=== PATIENT | female | born 1940 | race Caucasian/White ===

== ENCOUNTER 2017-07-26 16:02 | Emergency (ER) | payer MEDICAID, MEDICARE ==
[~2017-07-26] VITALS: Ht 147.3 cm; Wt 78.1 kg
[~2017-07-26 16:02] MED LIST: DICL50TA2 PO; METF850T2 PO; METO-99 PO; NIFE20CA PO; insulin
[2017-07-26] MEDS ORDERED: ALBUTEROL SULFATE 2.5 MG/3 ML ONE (16:46)
[2017-07-26 16:59] LABS: HEMATOCRIT 39.3 % (34.6-47.8); HEMOGLOBIN 13.1 g/dL (11.7-16.4); WHITE BLOOD COUNT 6.4 x10^3/uL (3.4-10)
[2017-07-26 17:00] LABS: BLOOD UREA NITROGEN 35 mg/dL (7-18)
[2017-07-26] MEDS ORDERED: ALBUTEROL SULFATE 2.5 MG/3 ML NPPB ONE (17:00)
[2017-07-26 17:05] LABS: IS PT STATUS REG ER OR PRE ER? YES
[2017-07-26 18:42] VITALS: BP 130/59
== END 2017-07-26 18:45 | disposition home or self-care (01) ==
LOC: ED 18:39
DX: Z76.0 Encounter for issue of repeat prescription (principal); J06.9 Acute upper respiratory infection, unspecified; I10 Essential (primary) hypertension; E11.9 Type 2 diabetes mellitus without complications
CPT/HCPCS: 36415; 71010; 80048; 82040; 84484; 85025; 93005; 94640; 99285; J7613

== ENCOUNTER 2017-09-05 18:57 | Emergency (ER) | payer MEDICARE ==
[~2017-09-05] VITALS: Ht 154.9 cm; Wt 80.0 kg
[2017-09-05 19:02] VITALS: BP 136/68
== END 2017-09-05 21:05 | disposition home or self-care (01) ==
LOC: ED 19:57
DX: Z76.0 Encounter for issue of repeat prescription (principal); I10 Essential (primary) hypertension; E11.9 Type 2 diabetes mellitus without complications; M19.90 Unspecified osteoarthritis, unspecified site
CPT/HCPCS: 99283

== ENCOUNTER 2019-08-20 09:38 | Inpatient (IN) | payer MEDICARE ==
[~2019-08-20] VITALS: Ht 152.4 cm; Wt 91.8 kg
[~2019-08-20 09:38] MED LIST changes: +CILO100T PO; +CLIN300C8 PO; +CLOP75TA PO; +DOXY100T PO; +MELO7.5T31 PO; +METF850T10 PO; -METF850T2 PO; +METR250T18 PO; +NPH INSULIN SQ; +OMEP-110 PO; +SALM50DI INH; +combivent inhaler
[2019-08-20 10:40] VITALS: BP 113/67
[2019-08-20] MEDS ORDERED: DEXTROSE 50%, 50ML SYRINGE IVPush ONE (11:00)
[2019-08-20] MEDS ORDERED: LIDOCAINE-MPF 1%, 2ML INFIL ONE (11:00)
[2019-08-20] MEDS ORDERED: LACTATED RINGERS 1,000 ML IV SCH (11:00)
[2019-08-20] MEDS ORDERED: FENTANYL PF 250 MCG/5ML ONE (11:46)
[2019-08-20] MEDS ORDERED: [UNRECOGNIZED DRUG - OTHER] PO ×2 (12:09→16:11)
[2019-08-20] MEDS ORDERED: CEFAZOLIN 1,000 MG ONE (12:13)
[2019-08-20] MEDS ORDERED: ONDANSETRON 2MG/ML, 2ML ONE (12:13)
[2019-08-20] MEDS ORDERED: LIDOCAINE-MPF 2% ,5ML ONE (12:13)
[2019-08-20] MEDS ORDERED: WATER-INJECTION,STERILE 10 ML IV ONE (12:13)
[2019-08-20] MEDS ORDERED: PHENYLEPHRINE 10 MG/ML ONE (12:13)
[2019-08-20] MEDS ORDERED: PROPOFOL 10 MG/ML, 20ML ONE (12:13)
[2019-08-20] MEDS ORDERED: ACETAMINOPHEN 325 MG TABLET PO PRN ×2 (12:30→14:00)
[2019-08-20] MEDS ORDERED: HALOPERIDOL 5 MG/ML IV PRN (12:30)
[2019-08-20] MEDS ORDERED: FENTANYL PF 100 MCG/2ML IV PRN (12:30)
[2019-08-20] MEDS ORDERED: OXYcodone 5 MG/5 ML ORAL.SOL UDC PO PRN (12:30)
[2019-08-20] MEDS ORDERED: MEPERIDINE/PF 25MG/ML,1ML IVPush PRN (12:30)
[2019-08-20] MEDS ORDERED: hydrALAzine 20 MG/ML, 1ML IV PRN (12:30)
[2019-08-20] MEDS ORDERED: PROMETHAZINE 25 MG/ML, 1ML IV PRN (12:30)
[2019-08-20] MEDS ORDERED: HYDROmorphone 2 MG/ML, 1ML IVPush PRN (12:30)
[2019-08-20] MEDS: SODIUM CHLORIDE 0.9% 1,000 ML IV SCH ×2 (13:59→23:59)
[2019-08-20] MEDS ORDERED: DEXTROSE 50%, 50ML SYRINGE IVPush PRN (14:00)
[2019-08-20] MEDS ORDERED: POLYETHYLENE GLYCOL 17 GM PACKET PO PRN (14:00)
[2019-08-20] MEDS ORDERED: GLUCAGON 1 MG IM PRN (14:00)
[2019-08-20] MEDS ORDERED: DEXTROSE 4 GM TAB.CHEW PO PRN (14:00)
[2019-08-20] MEDS ORDERED: GABAPENTIN 300 MG CAPSULE PO PRN (14:00)
[2019-08-20] MEDS ORDERED: ONDANSETRON ODT 4 MG PO PRN (14:00)
[2019-08-20 14:29] LABS: BASOPHILS # (AUTO) 0.03 x10^3/uL (0-0.1); BASOPHILS % (AUTO) 0 % (0-1); EOSINOPHILS # (AUTO) 0.23 x10^3/uL (0-0.4); EOSINOPHILS % (AUTO) 3 % (1-7); LYMPHOCYTES # (AUTO) 1.55 x10^3/uL (1-3.4); LYMPHOCYTES % (AUTO) 20 % (22-44); MD NO; MEAN CORPUSCULAR HEMOGLOBIN 27.4 pg (27.0-34.8); MEAN CORPUSCULAR HGB CONC 32.3 g/dL (32.4-35.8); MEAN CORPUSCULAR VOLUME 84.7 fL (80-100); MEAN PLATELET VOLUME 7.1 fL (7.4-10.4); MONOCYTES # (AUTO) 0.35 x10^3/uL (0.2-0.8); MONOCYTES % (AUTO) 5 % (2-9); NEUTROPHILS # (AUTO) 5.44 x10^3/uL (1.8-6.8); NEUTROPHILS % (AUTO) 72 % (42-75); PLATELET COUNT 413 x10^3/uL (130-400); RED BLOOD COUNT 3.59 x10^6/uL (3.82-5.3); RED CELL DISTRIBUTION WIDTH 14.7 % (9.6-15.2)
[2019-08-20] MEDS: HYDROcodone/APAP 5/325 TABLET PO PRN (14:32)
[2019-08-20 14:37] LABS: ANION GAP 8 mmol/L (5-15); CALCIUM 8.8 mg/dL (8.5-10.1); CHLORIDE 107 mmol/L (98-107); CREATININE 1.13 mg/dL (0.55-1.02)
[2019-08-20] MEDS ORDERED: DICL100T80 PO (14:48)
[2019-08-20] MEDS ORDERED: OXYcodone IR 5MG TABLET PO PRN (15:00)
[2019-08-20] MEDS ORDERED: VANCOMYCIN PER PHARMACY MC PRN (15:00)
[2019-08-20] MEDS ORDERED: PHARMACY MAY ADJ FOR RENAL FX MC PRN (15:00)
[2019-08-20] MEDS ORDERED: PHARMACOKINETIC MONITORING MC PRN (15:00)
[2019-08-20] MEDS: AMPICILLIN/SULBACTAM 3 GM in SODIUM CHLORIDE 0.9% 100 ML IV SCH ×2 (15:22→22:30)
[2019-08-20 15:55] LABS: HEMOGLOBIN A1C 8.7 % (4.2-6.3)
[2019-08-20] MEDS: INSULIN LISPRO 100 UNITS/ML, PEN SQ-INSULIN SCH ×2 (16:40→20:01)
[2019-08-20 19:30] VITALS: BP 129/74
[2019-08-20] MEDS: HEPARIN 5,000 UNITS/ML, 1ML SQ SCH (19:41)
[2019-08-20] MEDS: VANCOMYCIN 1,200 MG in SODIUM CHLORIDE 0.9% 250 ML IV SCH (19:41)
[2019-08-20] MEDS: SODIUM CHLORIDE FLUSH 10ML SYR IVF SCH (19:42)
[2019-08-20] MEDS: DOCUSATE 100 MG CAPSULE PO SCH (19:45)
[2019-08-21 00:12] VITALS: BP 144/64
[2019-08-21] MEDS: AMPICILLIN/SULBACTAM 3 GM in SODIUM CHLORIDE 0.9% 100 ML IV SCH ×3 (04:52→19:11)
[2019-08-21 05:26] LABS: BASOPHILS # (AUTO) 0.03 x10^3/uL (0-0.1); BASOPHILS % (AUTO) 0 % (0-1); EOSINOPHILS # (AUTO) 0.19 x10^3/uL (0-0.4); EOSINOPHILS % (AUTO) 2 % (1-7); LYMPHOCYTES # (AUTO) 1.09 x10^3/uL (1-3.4); LYMPHOCYTES % (AUTO) 11 % (22-44); MD NO; MEAN CORPUSCULAR HEMOGLOBIN 27.7 pg (27.0-34.8); MEAN CORPUSCULAR HGB CONC 32.5 g/dL (32.4-35.8); MEAN CORPUSCULAR VOLUME 85.2 fL (80-100); MEAN PLATELET VOLUME 7.5 fL (7.4-10.4); MONOCYTES # (AUTO) 0.49 x10^3/uL (0.2-0.8); MONOCYTES % (AUTO) 5 % (2-9); NEUTROPHILS % (AUTO) 82 % (42-75); PLATELET COUNT 394 x10^3/uL (130-400); RED BLOOD COUNT 3.54 x10^6/uL (3.82-5.3); RED CELL DISTRIBUTION WIDTH 14.3 % (9.6-15.2)
[2019-08-21 05:32] LABS: ANION GAP 6 mmol/L (5-15); CALCIUM 8.6 mg/dL (8.5-10.1); CHLORIDE 108 mmol/L (98-107)
[2019-08-21 05:35] LABS: CHOL/HDL RATIO 5.9; CHOLESTEROL, TOTAL 176 mg/dL (140-239); CREATININE 1.35 mg/dL (0.55-1.02); HDL CHOL % 17 % (28-40); HDL CHOLESTEROL (DIRECT) 30 mg/dL (40-60); LDL CHOLESTEROL,CALCULATED 112 mg/dL (54-169); LDL/HDL RATIO 3.7 (0.5-3.0); TRIGLYCERIDES 171 mg/dL (50-200); VLDL CHOLESTEROL 34 mg/dL (0-25)
[2019-08-21] MEDS: HEPARIN 5,000 UNITS/ML, 1ML SQ SCH ×2 (06:18→19:09)
[2019-08-21 06:56] VITALS: BP 154/75
[2019-08-21] MEDS: INSULIN LISPRO 100 UNITS/ML, PEN SQ-INSULIN SCH ×4 (07:00→20:27)
[2019-08-21] MEDS: DOCUSATE 100 MG CAPSULE PO SCH ×2 (08:15→20:26)
[2019-08-21] MEDS: SENNA/DOCUSATE TABLET PO SCH (08:15)
[2019-08-21] MEDS: SODIUM CHLORIDE FLUSH 10ML SYR IVF SCH ×2 (09:00→20:26)
[2019-08-21] MEDS: SODIUM CHLORIDE 0.9% 1,000 ML IV SCH ×2 (13:59→20:27)
[2019-08-21 14:48] LABS: BASOPHILS # (AUTO) 0.02 x10^3/uL (0-0.1); BASOPHILS % (AUTO) 0 % (0-1); EOSINOPHILS # (AUTO) 0.13 x10^3/uL (0-0.4); EOSINOPHILS % (AUTO) 2 % (1-7); LYMPHOCYTES # (AUTO) 1.35 x10^3/uL (1-3.4); LYMPHOCYTES % (AUTO) 17 % (22-44); MD NO; MEAN CORPUSCULAR HEMOGLOBIN 27.7 pg (27.0-34.8); MEAN CORPUSCULAR HGB CONC 32.6 g/dL (32.4-35.8); MEAN PLATELET VOLUME 7.2 fL (7.4-10.4); MONOCYTES # (AUTO) 0.45 x10^3/uL (0.2-0.8); MONOCYTES % (AUTO) 6 % (2-9); NEUTROPHILS # (AUTO) 6.03 x10^3/uL (1.8-6.8); NEUTROPHILS % (AUTO) 76 % (42-75); PLATELET COUNT 417 x10^3/uL (130-400); RED BLOOD COUNT 3.97 x10^6/uL (3.82-5.3); RED CELL DISTRIBUTION WIDTH 14.4 % (9.6-15.2)
[2019-08-21 14:53] LABS: ALANINE AMINOTRANSFERASE 17 U/L (12-78); ALBUMIN 3.1 g/dL (3.4-5.0); ANION GAP 7 mmol/L (5-15); CHLORIDE 105 mmol/L (98-107)
[2019-08-21 14:57] LABS: BILIRUBIN, DIRECT < 0.1 mg/dL (0.1-0.2)
[2019-08-21 14:58] LABS: ALKALINE PHOSPHATASE 155 U/L (45-117); BILIRUBIN,INDIRECT 0.2 mg/dL (0.0-2.0); BILIRUBIN,TOTAL 0.3 mg/dL (0.2-1.0); CREATININE 1.07 mg/dL (0.55-1.02); TOTAL PROTEIN 7.9 g/dL (6.4-8.2); TROPONIN I < 0.015 ng/mL (0.000-0.045)
[2019-08-21] MEDS ORDERED: INSTRUCTION SEE COMMENTS XX PRN (15:30)
[2019-08-21] MEDS ORDERED: AVOID BENZODIAZEPINES MC PRN (15:30)
[2019-08-21] MEDS ORDERED: QUETIAPINE 25MG TABLET PO PRN (15:30)
[2019-08-21 15:35] LABS: MICROSCOPIC NOT IND
[2019-08-21] MEDS: ASPIRIN 81 MG TABLET EC PO SCH (16:00)
[2019-08-21 16:07] VITALS: BP 190/71
[2019-08-21 19:42] VITALS: BP 194/72
[2019-08-21 20:04] LABS: TROPONIN I < 0.015 ng/mL (0.000-0.045)
[2019-08-21] MEDS: ATORVASTATIN 40 MG TABLET PO SCH (20:26)
[2019-08-21] MEDS: MELATONIN 3 MG TABLET PO SCH (20:28)
[2019-08-21 21:43] VITALS: BP_SYST 161; BP_SYST 71; BP_DIAS 71; BP_DIAS 72
[2019-08-22] VITALS (9 sets, daily range): BP systolic 104–203; BP diastolic 54–77
[2019-08-22] MEDS: AMPICILLIN/SULBACTAM 3 GM in SODIUM CHLORIDE 0.9% 100 ML IV SCH ×4 (01:34→20:49)
[2019-08-22] MEDS: HEPARIN 5,000 UNITS/ML, 1ML SQ SCH ×3 (01:35→18:32)
[2019-08-22] MEDS: hydrALAzine 20 MG/ML, 1ML IVPush PRN ×3 (01:56→15:46)
[2019-08-22] MEDS: SODIUM CHLORIDE 0.9% 1,000 ML IV SCH ×2 (05:46→21:04)
[2019-08-22] MEDS: ASPIRIN 81 MG TABLET EC PO SCH (05:46)
[2019-08-22 06:15] LABS: CHOL/HDL RATIO 5.8; LDL/HDL RATIO 3.7 (0.5-3.0)
[2019-08-22] MEDS: OMEPRAZOLE 20 MG CAPSULE.DR PO SCH (08:25)
[2019-08-22] MEDS: CLOPIDOGREL 75 MG TABLET PO SCH (08:25)
[2019-08-22] MEDS: SENNA/DOCUSATE TABLET PO SCH (08:26)
[2019-08-22] MEDS: ACETAMINOPHEN 325 MG TABLET PO PRN ×2 (08:26→21:04)
[2019-08-22] MEDS: DOCUSATE 100 MG CAPSULE PO SCH ×2 (08:26→20:49)
[2019-08-22] MEDS: SODIUM CHLORIDE FLUSH 10ML SYR IVF SCH ×2 (08:27→20:49)
[2019-08-22] MEDS: INSULIN LISPRO 100 UNITS/ML, PEN SQ-INSULIN SCH ×4 (08:33→20:50)
[2019-08-22] MEDS: VANCOMYCIN 1,200 MG in SODIUM CHLORIDE 0.9% 250 ML IV SCH (10:46)
[2019-08-22] MEDS ORDERED: LIDOCAINE 1%, 10ML ONE (13:05)
[2019-08-22] MEDS ORDERED: MIDAZOLAM 1 MG/ML, 5ML ONE (13:07)
[2019-08-22] MEDS ORDERED: FENTANYL PF 100 MCG/2ML ONE ×2 (13:07)
[2019-08-22] MEDS ORDERED: PROTAMINE SULFATE 10 MG/ML, 25ML ONE (13:08)
[2019-08-22] MEDS ORDERED: NITROGLYCERIN 5 MG/ML, 10ML ONE (13:08)
[2019-08-22] MEDS ORDERED: FLUMAZENIL 0.1 MG/1 ML, 5ML ONE (13:08)
[2019-08-22] MEDS ORDERED: HEPARIN 1,000 UNITS/ML, 10ML ONE (13:08)
[2019-08-22] MEDS ORDERED: NALOXONE 1 MG/ML, 2ML ONE (13:08)
[2019-08-22] MEDS: METOPROLOL TARTRATE 100 MG TABLET PO SCH ×2 (13:17→20:49)
[2019-08-22] MEDS: ONDANSETRON 2MG/ML, 2ML IVPush PRN (18:25)
[2019-08-22] MEDS: MELATONIN 3 MG TABLET PO SCH (20:49)
[2019-08-22] MEDS: ATORVASTATIN 40 MG TABLET PO SCH (20:49)
[2019-08-23 01:01] VITALS: BP 150/77
[2019-08-23] MEDS: AMPICILLIN/SULBACTAM 3 GM in SODIUM CHLORIDE 0.9% 100 ML IV SCH ×3 (02:16→14:20)
[2019-08-23] MEDS: HEPARIN 5,000 UNITS/ML, 1ML SQ SCH ×3 (02:16→17:14)
[2019-08-23] MEDS: SODIUM CHLORIDE 0.9% 1,000 ML IV SCH ×3 (02:17→20:44)
[2019-08-23 05:43] LABS: BASOPHILS # (AUTO) 0.02 x10^3/uL (0-0.1); BASOPHILS % (AUTO) 0 % (0-1); EOSINOPHILS # (AUTO) 0.12 x10^3/uL (0-0.4); EOSINOPHILS % (AUTO) 2 % (1-7); LYMPHOCYTES # (AUTO) 1.56 x10^3/uL (1-3.4); LYMPHOCYTES % (AUTO) 23 % (22-44); MD NO; MEAN CORPUSCULAR HEMOGLOBIN 27.3 pg (27.0-34.8); MEAN CORPUSCULAR HGB CONC 31.9 g/dL (32.4-35.8); MEAN CORPUSCULAR VOLUME 85.7 fL (80-100); MEAN PLATELET VOLUME 7.5 fL (7.4-10.4); MONOCYTES # (AUTO) 0.43 x10^3/uL (0.2-0.8); MONOCYTES % (AUTO) 6 % (2-9); NEUTROPHILS # (AUTO) 4.65 x10^3/uL (1.8-6.8); NEUTROPHILS % (AUTO) 69 % (42-75); PLATELET COUNT 373 x10^3/uL (130-400); RED BLOOD COUNT 3.69 x10^6/uL (3.82-5.3); RED CELL DISTRIBUTION WIDTH 14.5 % (9.6-15.2)
[2019-08-23 05:54] LABS: CHLORIDE 105 mmol/L (98-107)
[2019-08-23 06:03] LABS: ANION GAP 8 mmol/L (5-15); CALCIUM 8.8 mg/dL (8.5-10.1); CREATININE 0.85 mg/dL (0.55-1.02)
[2019-08-23] MEDS: ASPIRIN 81 MG TABLET EC PO SCH (06:23)
[2019-08-23 07:54] VITALS: BP 153/67
[2019-08-23] MEDS: METOPROLOL TARTRATE 100 MG TABLET PO SCH ×2 (07:56→20:44)
[2019-08-23] MEDS: OMEPRAZOLE 20 MG CAPSULE.DR PO SCH (07:57)
[2019-08-23] MEDS: CLOPIDOGREL 75 MG TABLET PO SCH (07:57)
[2019-08-23] MEDS: SENNA/DOCUSATE TABLET PO SCH (07:57)
[2019-08-23] MEDS: DOCUSATE 100 MG CAPSULE PO SCH ×2 (07:57→20:43)
[2019-08-23] MEDS: INSULIN LISPRO 100 UNITS/ML, PEN SQ-INSULIN SCH ×4 (07:58→20:44)
[2019-08-23] MEDS: SODIUM CHLORIDE FLUSH 10ML SYR IVF SCH ×2 (08:12→20:44)
[2019-08-23 12:21] LABS: MICROSCOPIC NOT IND
[2019-08-23 12:28] LABS: CULTURE INDICATED? NO
[2019-08-23 14:47] VITALS: BP 146/68
[2019-08-23] MEDS ORDERED: PIPERACILLIN/TAZO/PMX 3.375GM 50 ML IV SCH (15:00)
[2019-08-23] MEDS: CEFTRIAXONE PMX 2GM/50ML 50 ML IV SCH (15:48)
[2019-08-23 20:02] VITALS: BP 162/68
[2019-08-23] MEDS: ATORVASTATIN 40 MG TABLET PO SCH (20:43)
[2019-08-23] MEDS: MELATONIN 3 MG TABLET PO SCH (20:50)
[2019-08-24 01:14] VITALS: BP 193/70
[2019-08-24] MEDS: HEPARIN 5,000 UNITS/ML, 1ML SQ SCH ×3 (01:30→17:06)
[2019-08-24] MEDS: hydrALAzine 20 MG/ML, 1ML IVPush PRN ×2 (01:30→08:14)
[2019-08-24 01:51] VITALS: BP 149/69
[2019-08-24 05:23] LABS: BASOPHILS # (AUTO) 0.03 x10^3/uL (0-0.1); BASOPHILS % (AUTO) 0 % (0-1); EOSINOPHILS # (AUTO) 0.19 x10^3/uL (0-0.4); EOSINOPHILS % (AUTO) 3 % (1-7); LYMPHOCYTES # (AUTO) 1.33 x10^3/uL (1-3.4); LYMPHOCYTES % (AUTO) 18 % (22-44); MD NO; MEAN CORPUSCULAR HEMOGLOBIN 26.7 pg (27.0-34.8); MEAN CORPUSCULAR HGB CONC 31.9 g/dL (32.4-35.8); MEAN CORPUSCULAR VOLUME 83.8 fL (80-100); MEAN PLATELET VOLUME 7.6 fL (7.4-10.4); MONOCYTES # (AUTO) 0.39 x10^3/uL (0.2-0.8); MONOCYTES % (AUTO) 5 % (2-9); NEUTROPHILS # (AUTO) 5.39 x10^3/uL (1.8-6.8); NEUTROPHILS % (AUTO) 74 % (42-75); PLATELET COUNT 327 x10^3/uL (130-400); RED BLOOD COUNT 3.85 x10^6/uL (3.82-5.3); RED CELL DISTRIBUTION WIDTH 14.1 % (9.6-15.2)
[2019-08-24 05:33] LABS: ALBUMIN 2.9 g/dL (3.4-5.0); ANION GAP 8 mmol/L (5-15); CALCIUM 8.8 mg/dL (8.5-10.1); CHLORIDE 103 mmol/L (98-107); CREATININE 0.85 mg/dL (0.55-1.02)
[2019-08-24] MEDS: SODIUM CHLORIDE 0.9% 1,000 ML IV SCH (05:48)
[2019-08-24] MEDS: ASPIRIN 81 MG TABLET EC PO SCH (05:48)
[2019-08-24 07:08] VITALS: BP 180/68
[2019-08-24] MEDS: SENNA/DOCUSATE TABLET PO SCH (08:13)
[2019-08-24] MEDS: OMEPRAZOLE 20 MG CAPSULE.DR PO SCH (08:13)
[2019-08-24] MEDS: INSULIN LISPRO 100 UNITS/ML, PEN SQ-INSULIN SCH ×4 (08:13→20:57)
[2019-08-24] MEDS: CLOPIDOGREL 75 MG TABLET PO SCH (08:13)
[2019-08-24] MEDS: DOCUSATE 100 MG CAPSULE PO SCH ×2 (08:14→21:00)
[2019-08-24] MEDS: METOPROLOL TARTRATE 100 MG TABLET PO SCH ×2 (08:14→20:59)
[2019-08-24] MEDS: SODIUM CHLORIDE FLUSH 10ML SYR IVF SCH ×2 (08:14→21:00)
[2019-08-24] MEDS ORDERED: POTASSIUM PHOSPHATE 44 MEQ in SODIUM CHLORIDE 0.9% 500 ML IV ONE (08:30)
[2019-08-24] MEDS ORDERED: MAGNESIUM SULFATE PMX 2GM/50ML 50 ML IV ONE (08:30)
[2019-08-24] MEDS: CALCIUM CARBONATE 500 MG TAB.CHEW PO SCH ×2 (09:43→20:59)
[2019-08-24] MEDS: MULTIVITS,STRESS FORMULA 1 TABLET PO SCH (09:43)
[2019-08-24 10:51] VITALS: BP 158/65
[2019-08-24] MEDS: CEFTRIAXONE PMX 2GM/50ML 50 ML IV SCH (15:14)
[2019-08-24] MEDS: CHOLECALCIFEROL 400 UNITS TABLET PO SCH (16:42)
[2019-08-24] MEDS: ASCORBIC ACID 500 MG TABLET PO SCH (16:42)
[2019-08-24 19:59] VITALS: BP 191/68
[2019-08-24] MEDS: ATORVASTATIN 40 MG TABLET PO SCH (20:59)
[2019-08-24] MEDS: MELATONIN 3 MG TABLET PO SCH (21:00)
[2019-08-25 01:40] VITALS: BP 163/74
[2019-08-25] MEDS: HEPARIN 5,000 UNITS/ML, 1ML SQ SCH ×3 (02:27→23:57)
[2019-08-25] MEDS: SODIUM CHLORIDE 0.9% 1,000 ML IV SCH ×2 (05:03→23:57)
[2019-08-25 05:56] LABS: BASOPHILS # (AUTO) 0.02 x10^3/uL (0-0.1); BASOPHILS % (AUTO) 0 % (0-1); EOSINOPHILS # (AUTO) 0.26 x10^3/uL (0-0.4); EOSINOPHILS % (AUTO) 4 % (1-7); LYMPHOCYTES # (AUTO) 1.45 x10^3/uL (1-3.4); LYMPHOCYTES % (AUTO) 21 % (22-44); MD NO; MEAN CORPUSCULAR HEMOGLOBIN 27.4 pg (27.0-34.8); MEAN CORPUSCULAR HGB CONC 32.5 g/dL (32.4-35.8); MEAN CORPUSCULAR VOLUME 84.1 fL (80-100); MEAN PLATELET VOLUME 7.5 fL (7.4-10.4); MONOCYTES # (AUTO) 0.31 x10^3/uL (0.2-0.8); MONOCYTES % (AUTO) 5 % (2-9); NEUTROPHILS % (AUTO) 70 % (42-75); PLATELET COUNT 339 x10^3/uL (130-400); RED BLOOD COUNT 3.89 x10^6/uL (3.82-5.3); RED CELL DISTRIBUTION WIDTH 14.4 % (9.6-15.2)
[2019-08-25 06:07] LABS: ANION GAP 7 mmol/L (5-15); CHLORIDE 106 mmol/L (98-107); CREATININE 0.79 mg/dL (0.55-1.02)
[2019-08-25] MEDS: ASPIRIN 81 MG TABLET EC PO SCH (06:15)
[2019-08-25] MEDS: INSULIN LISPRO 100 UNITS/ML, PEN SQ-INSULIN SCH ×4 (07:00→22:30)
[2019-08-25 07:25] VITALS: BP 184/66
[2019-08-25] MEDS: CLOPIDOGREL 75 MG TABLET PO SCH (08:47)
[2019-08-25] MEDS: OMEPRAZOLE 20 MG CAPSULE.DR PO SCH (08:47)
[2019-08-25] MEDS: MULTIVITS,STRESS FORMULA 1 TABLET PO SCH (08:47)
[2019-08-25] MEDS: ASCORBIC ACID 500 MG TABLET PO SCH ×2 (08:48→22:30)
[2019-08-25] MEDS: CALCIUM CARBONATE 500 MG TAB.CHEW PO SCH ×2 (08:48→22:30)
[2019-08-25] MEDS: METOPROLOL TARTRATE 100 MG TABLET PO SCH ×2 (08:48→22:30)
[2019-08-25] MEDS: SENNA/DOCUSATE TABLET PO SCH (08:48)
[2019-08-25] MEDS: DOCUSATE 100 MG CAPSULE PO SCH ×2 (08:48→22:30)
[2019-08-25] MEDS: LISINOPRIL 10 MG TABLET PO SCH (08:48)
[2019-08-25] MEDS: SODIUM CHLORIDE FLUSH 10ML SYR IVF SCH ×2 (08:49→21:00)
[2019-08-25 11:50] VITALS: BP 192/74
[2019-08-25] MEDS: hydrALAzine 20 MG/ML, 1ML IVPush PRN (12:13)
[2019-08-25 13:06] VITALS: BP 125/72
[2019-08-25] MEDS ORDERED: MIDAZOLAM 1 MG/ML, 2ML ONE (13:53)
[2019-08-25] MEDS ORDERED: FENTANYL PF 250 MCG/5ML ONE (13:53)
[2019-08-25] MEDS ORDERED: THROMBIN 5,000 UNIT VIAL TP ONE ×2 (14:05→15:51)
[2019-08-25] MEDS ORDERED: PROTAMINE SULFATE 10 MG/ML, 5ML ONE (14:05)
[2019-08-25] MEDS ORDERED: HEPARIN 1,000 UNITS/ML, 10ML ONE ×2 (14:06→15:51)
[2019-08-25] MEDS ORDERED: LIDOCAINE 1%, 20ML ONE (14:06)
[2019-08-25] MEDS ORDERED: BACITRACIN 50,000 UNIT ONE (14:06)
[2019-08-25] MEDS ORDERED: HYDROmorphone 2 MG/ML, 1ML IVPush PRN (16:00)
[2019-08-25] MEDS ORDERED: OXYcodone 5 MG/5 ML ORAL.SOL UDC PO PRN (16:00)
[2019-08-25] MEDS ORDERED: PROMETHAZINE 25 MG/ML, 1ML IV PRN (16:00)
[2019-08-25] MEDS ORDERED: HALOPERIDOL 5 MG/ML IV PRN (16:00)
[2019-08-25] MEDS ORDERED: MEPERIDINE/PF 25MG/ML,1ML IVPush PRN (16:00)
[2019-08-25] MEDS ORDERED: FENTANYL PF 100 MCG/2ML IV PRN (16:00)
[2019-08-25] MEDS: INSULIN REGULAR 100 UNITS/ML, 3ML VIAL SQ-INSULIN SCH ×2 (16:00→22:30)
[2019-08-25] MEDS ORDERED: hydrALAzine 20 MG/ML, 1ML IV PRN (16:00)
[2019-08-25] MEDS ORDERED: ACETAMINOPHEN 325 MG TABLET PO PRN (16:00)
[2019-08-25] MEDS ORDERED: INSULIN SINGLE DOSE, ER SQ-INSULIN ONE (17:12)
[2019-08-25] MEDS ORDERED: CEFAZOLIN 1,000 MG ONE (17:29)
[2019-08-25] MEDS ORDERED: PHENYLEPHRINE 10 MG/ML ONE (17:29)
[2019-08-25] MEDS ORDERED: LIDOCAINE-MPF 2%, 2ML ONE (17:29)
[2019-08-25] MEDS ORDERED: PROPOFOL 10 MG/ML, 20ML ONE (17:29)
[2019-08-25] MEDS ORDERED: ROCURONIUM 10MG/ML,5ML ONE (17:29)
[2019-08-25] MEDS ORDERED: ONDANSETRON 2MG/ML, 2ML ONE (17:29)
[2019-08-25] MEDS ORDERED: DEXAMETHASONE 4 MG/ML, 1ML ONE (17:29)
[2019-08-25] MEDS ORDERED: HYDROcodone/APAP 5/325 TABLET PO PRN (19:30)
[2019-08-25] MEDS ORDERED: FENTANYL PF 100 MCG/2ML IVPush PRN (19:30)
[2019-08-25] MEDS ORDERED: PROMETHAZINE 25 MG/ML, 1ML ONE (20:12)
[2019-08-25] MEDS ORDERED: HYDROmorphone 1 MG/ML, 1ML VIAL ONE (20:26)
[2019-08-25] MEDS: MELATONIN 3 MG TABLET PO SCH (21:00)
[2019-08-25] MEDS: CEFTRIAXONE PMX 2GM/50ML 50 ML IV SCH (22:16)
[2019-08-25] MEDS: CHOLECALCIFEROL 400 UNITS TABLET PO SCH (22:30)
[2019-08-25] MEDS: ATORVASTATIN 40 MG TABLET PO SCH (22:30)
[2019-08-26] VITALS (10 sets, daily range): BP systolic 78–116; BP diastolic 41–66
[2019-08-26 05:43] LABS: ANION GAP 10 mmol/L (5-15); CHLORIDE 104 mmol/L (98-107); MEAN CORPUSCULAR HEMOGLOBIN 27.5 pg (27.0-34.8); MEAN CORPUSCULAR HGB CONC 31.9 g/dL (32.4-35.8); MEAN PLATELET VOLUME 7.7 fL (7.4-10.4); PLATELET COUNT 301 x10^3/uL (130-400); RED BLOOD COUNT 2.66 x10^6/uL (3.82-5.3); RED CELL DISTRIBUTION WIDTH 14.6 % (9.6-15.2)
[2019-08-26 05:44] LABS: CREATININE 1.09 mg/dL (0.55-1.02)
[2019-08-26] MEDS: ASPIRIN 81 MG TABLET EC PO SCH (06:08)
[2019-08-26 06:10] LABS: MD YES
[2019-08-26 06:12] LABS: BAND#(MANUAL) 0.23 x10^3/uL; BANDS%(MANUAL) 2 % (0-7); LYMPH#(MANUAL) 1.16 x10^3/uL (1-3.4); LYMPHS% (MANUAL) 10 % (22-44); METAMYELOCYTES# (MANUAL) 0.12 x10^3/uL (0-0); METAMYELOCYTES% (MANUAL) 1 % (0-1); MONOS#(MANUAL) 0.58 x10^3/uL (0.3-2.7); MONOS% (MANUAL) 5 % (2-9); NRBC % (MANUAL) 1 % (0-1); SEG#(MANUAL) 9.51 x10^3/uL (1.8-6.8); SEGS% (MANUAL) 82 % (42-75)
[2019-08-26 06:13] LABS: <PLATELET ESTIMATE> ADEQUATE; <PLT MORPHOLOGY> NORMAL PLT MORPH; ANISOCYTOSIS 1+
[2019-08-26] MEDS: INSULIN REGULAR 100 UNITS/ML, 3ML VIAL SQ-INSULIN SCH (07:00)
[2019-08-26] MEDS ORDERED: SODIUM CHLORIDE 0.9%, 500ML IVBOLUS ONE (08:30)
[2019-08-26] MEDS: HEPARIN 5,000 UNITS/ML, 1ML SQ SCH ×2 (08:56→16:40)
[2019-08-26] MEDS: SODIUM CHLORIDE 0.9% 1,000 ML IV SCH ×2 (08:57→21:54)
[2019-08-26] MEDS: LISINOPRIL 10 MG TABLET PO SCH (09:00)
[2019-08-26] MEDS: SENNA/DOCUSATE TABLET PO SCH (09:00)
[2019-08-26] MEDS: DOCUSATE 100 MG CAPSULE PO SCH ×2 (09:00→20:30)
[2019-08-26] MEDS: SODIUM CHLORIDE FLUSH 10ML SYR IVF SCH ×2 (09:00→20:57)
[2019-08-26] MEDS: METOPROLOL TARTRATE 100 MG TABLET PO SCH ×2 (09:00→20:32)
[2019-08-26] MEDS: INSULIN LISPRO 100 UNITS/ML, PEN SQ-INSULIN SCH ×4 (09:21→20:32)
[2019-08-26] MEDS: CALCIUM CARBONATE 500 MG TAB.CHEW PO SCH ×2 (10:26→20:30)
[2019-08-26] MEDS: MULTIVITS,STRESS FORMULA 1 TABLET PO SCH (10:26)
[2019-08-26] MEDS: OMEPRAZOLE 20 MG CAPSULE.DR PO SCH (10:27)
[2019-08-26] MEDS: CLOPIDOGREL 75 MG TABLET PO SCH (10:27)
[2019-08-26] MEDS: ASCORBIC ACID 500 MG TABLET PO SCH ×2 (10:28→16:41)
[2019-08-26 11:58] LABS: MEAN CORPUSCULAR HEMOGLOBIN 27.7 pg (27.0-34.8); MEAN CORPUSCULAR HGB CONC 32.4 g/dL (32.4-35.8); MEAN CORPUSCULAR VOLUME 85.5 fL (80-100); MEAN PLATELET VOLUME 7.7 fL (7.4-10.4); PLATELET COUNT 288 x10^3/uL (130-400); RED BLOOD COUNT 2.31 x10^6/uL (3.82-5.3); RED CELL DISTRIBUTION WIDTH 14.8 % (9.6-15.2)
[2019-08-26 12:36] LABS: BASOPHILS # (AUTO) 0.01 x10^3/uL (0-0.1); BASOPHILS % (AUTO) 0 % (0-1); EOSINOPHILS % (AUTO) 0 % (1-7); LYMPHOCYTES % (AUTO) 18 % (22-44); MD SCAN; MONOCYTES # (AUTO) 0.62 x10^3/uL (0.2-0.8); MONOCYTES % (AUTO) 7 % (2-9); NEUTROPHILS # (AUTO) 6.95 x10^3/uL (1.8-6.8); NEUTROPHILS % (AUTO) 75 % (42-75)
[2019-08-26] MEDS: ONDANSETRON 2MG/ML, 2ML IVPush PRN (12:46)
[2019-08-26] MEDS: CHOLECALCIFEROL 400 UNITS TABLET PO SCH (16:41)
[2019-08-26] MEDS ORDERED: SODIUM CHLORIDE 0.9%, 250ML IVBOLUS ONE (18:00)
[2019-08-26] MEDS: ATORVASTATIN 40 MG TABLET PO SCH (20:30)
[2019-08-26] MEDS: MELATONIN 3 MG TABLET PO SCH (20:30)
[2019-08-26] MEDS: CEFTRIAXONE PMX 2GM/50ML 50 ML IV SCH (21:54)
[2019-08-26] MEDS: HYDROcodone/APAP 5/325 TABLET PO PRN (21:57)
[2019-08-27] VITALS (7 sets, daily range): BP systolic 108–150; BP diastolic 65–71
[2019-08-27] MEDS: HEPARIN 5,000 UNITS/ML, 1ML SQ SCH ×2 (00:13→08:55)
[2019-08-27 05:21] LABS: ALBUMIN 2.4 g/dL (3.4-5.0); ANION GAP 13 mmol/L (5-15); CALCIUM 7.8 mg/dL (8.5-10.1); CHLORIDE 104 mmol/L (98-107)
[2019-08-27 05:23] LABS: MEAN CORPUSCULAR HEMOGLOBIN 27.8 pg (27.0-34.8); MEAN CORPUSCULAR HGB CONC 32.2 g/dL (32.4-35.8); MEAN CORPUSCULAR VOLUME 86.3 fL (80-100); PLATELET COUNT 233 x10^3/uL (130-400); RED BLOOD COUNT 2.56 x10^6/uL (3.82-5.3); RED CELL DISTRIBUTION WIDTH 14.8 % (9.6-15.2)
[2019-08-27] MEDS: ASPIRIN 81 MG TABLET EC PO SCH (05:33)
[2019-08-27] MEDS: HYDROcodone/APAP 5/325 TABLET PO PRN ×3 (05:33→16:59)
[2019-08-27 05:44] LABS: BASOPHILS # (AUTO) 0.03 x10^3/uL (0-0.1); BASOPHILS % (AUTO) 0 % (0-1); EOSINOPHILS # (AUTO) 0.04 x10^3/uL (0-0.4); EOSINOPHILS % (AUTO) 1 % (1-7); LYMPHOCYTES # (AUTO) 2.07 x10^3/uL (1-3.4); LYMPHOCYTES % (AUTO) 27 % (22-44); MD SCAN; MONOCYTES # (AUTO) 0.55 x10^3/uL (0.2-0.8); MONOCYTES % (AUTO) 7 % (2-9); NEUTROPHILS # (AUTO) 5.04 x10^3/uL (1.8-6.8); NEUTROPHILS % (AUTO) 65 % (42-75)
[2019-08-27 05:56] LABS: ALANINE AMINOTRANSFERASE 15 U/L (12-78); CREATININE 1.12 mg/dL (0.55-1.02)
[2019-08-27 05:59] LABS: ALKALINE PHOSPHATASE 91 U/L (45-117); BILIRUBIN,TOTAL 0.3 mg/dL (0.2-1.0); TOTAL PROTEIN 5.5 g/dL (6.4-8.2)
[2019-08-27] MEDS: SODIUM CHLORIDE 0.9% 1,000 ML IV SCH (06:00)
[2019-08-27] MEDS: INSULIN LISPRO 100 UNITS/ML, PEN SQ-INSULIN SCH ×4 (08:25→20:28)
[2019-08-27] MEDS: OMEPRAZOLE 20 MG CAPSULE.DR PO SCH (08:26)
[2019-08-27] MEDS: CALCIUM CARBONATE 500 MG TAB.CHEW PO SCH ×2 (08:26→20:28)
[2019-08-27] MEDS: SENNA/DOCUSATE TABLET PO SCH (08:26)
[2019-08-27] MEDS: DOCUSATE 100 MG CAPSULE PO SCH ×2 (08:26→20:28)
[2019-08-27] MEDS: CLOPIDOGREL 75 MG TABLET PO SCH (08:26)
[2019-08-27] MEDS: ASCORBIC ACID 500 MG TABLET PO SCH ×2 (08:26→16:50)
[2019-08-27] MEDS: MULTIVITS,STRESS FORMULA 1 TABLET PO SCH (08:26)
[2019-08-27] MEDS: METOPROLOL TARTRATE 100 MG TABLET PO SCH ×2 (08:27→20:28)
[2019-08-27] MEDS: LISINOPRIL 10 MG TABLET PO SCH (08:27)
[2019-08-27] MEDS: SODIUM CHLORIDE FLUSH 10ML SYR IVF SCH ×2 (08:56→20:29)
[2019-08-27] MEDS: INSULIN GLARGINE 100 UNITS/ML, PEN SQ-INSULIN SCH (12:12)
[2019-08-27] MEDS: CHOLECALCIFEROL 400 UNITS TABLET PO SCH (16:50)
[2019-08-27] MEDS: MELATONIN 3 MG TABLET PO SCH (20:28)
[2019-08-27] MEDS: ATORVASTATIN 40 MG TABLET PO SCH (20:28)
[2019-08-27] MEDS: CEFTRIAXONE PMX 2GM/50ML 50 ML IV SCH (21:57)
[2019-08-28 01:46] VITALS: BP 128/70
[2019-08-28] MEDS: ASPIRIN 81 MG TABLET EC PO SCH (05:47)
[2019-08-28 06:10] LABS: ANION GAP 8 mmol/L (5-15); CALCIUM 8.1 mg/dL (8.5-10.1); CHLORIDE 107 mmol/L (98-107); CREATININE 0.85 mg/dL (0.55-1.02)
[2019-08-28 06:12] LABS: BASOPHILS # (AUTO) 0.04 x10^3/uL (0-0.1); BASOPHILS % (AUTO) 0 % (0-1); EOSINOPHILS # (AUTO) 0.06 x10^3/uL (0-0.4); EOSINOPHILS % (AUTO) 1 % (1-7); LYMPHOCYTES # (AUTO) 1.55 x10^3/uL (1-3.4); LYMPHOCYTES % (AUTO) 16 % (22-44); MD NO; MEAN CORPUSCULAR HEMOGLOBIN 28.6 pg (27.0-34.8); MEAN CORPUSCULAR HGB CONC 32.7 g/dL (32.4-35.8); MEAN CORPUSCULAR VOLUME 87.5 fL (80-100); MEAN PLATELET VOLUME 7.9 fL (7.4-10.4); MONOCYTES # (AUTO) 0.61 x10^3/uL (0.2-0.8); MONOCYTES % (AUTO) 6 % (2-9); NEUTROPHILS # (AUTO) 7.63 x10^3/uL (1.8-6.8); NEUTROPHILS % (AUTO) 77 % (42-75); PLATELET COUNT 214 x10^3/uL (130-400); RED BLOOD COUNT 2.81 x10^6/uL (3.82-5.3); RED CELL DISTRIBUTION WIDTH 14.9 % (9.6-15.2)
[2019-08-28 07:13] VITALS: BP 158/73
[2019-08-28] MEDS: DOCUSATE 100 MG CAPSULE PO SCH ×2 (09:00→21:00)
[2019-08-28] MEDS: INSULIN GLARGINE 100 UNITS/ML, PEN SQ-INSULIN SCH (09:13)
[2019-08-28] MEDS: INSULIN LISPRO 100 UNITS/ML, PEN SQ-INSULIN SCH ×4 (09:13→21:25)
[2019-08-28] MEDS: CLOPIDOGREL 75 MG TABLET PO SCH (09:14)
[2019-08-28] MEDS: LISINOPRIL 10 MG TABLET PO SCH (09:14)
[2019-08-28] MEDS: CALCIUM CARBONATE 500 MG TAB.CHEW PO SCH ×2 (09:14→21:24)
[2019-08-28] MEDS: SENNA/DOCUSATE TABLET PO SCH (09:14)
[2019-08-28] MEDS: METOPROLOL TARTRATE 100 MG TABLET PO SCH ×2 (09:15→21:24)
[2019-08-28] MEDS: MULTIVITS,STRESS FORMULA 1 TABLET PO SCH (09:15)
[2019-08-28] MEDS: SODIUM CHLORIDE FLUSH 10ML SYR IVF SCH ×2 (09:15→21:24)
[2019-08-28] MEDS: ASCORBIC ACID 500 MG TABLET PO SCH ×2 (09:15→17:32)
[2019-08-28] MEDS: OMEPRAZOLE 20 MG CAPSULE.DR PO SCH (09:15)
[2019-08-28] MEDS: HYDROcodone/APAP 5/325 TABLET PO PRN (10:40)
[2019-08-28 13:32] VITALS: BP 117/64
[2019-08-28] MEDS: CHOLECALCIFEROL 400 UNITS TABLET PO SCH (17:32)
[2019-08-28 19:08] VITALS: BP 147/61
[2019-08-28] MEDS: MELATONIN 3 MG TABLET PO SCH (21:24)
[2019-08-28] MEDS: ATORVASTATIN 40 MG TABLET PO SCH (21:24)
[2019-08-28] MEDS: CEFTRIAXONE PMX 2GM/50ML 50 ML IV SCH (21:32)
[2019-08-29 00:50] VITALS: BP 168/77
[2019-08-29] MEDS: ASPIRIN 81 MG TABLET EC PO SCH (06:10)
[2019-08-29 08:00] VITALS: BP 166/69
[2019-08-29] MEDS: INSULIN LISPRO 100 UNITS/ML, PEN SQ-INSULIN SCH ×4 (08:34→21:49)
[2019-08-29] MEDS: ASCORBIC ACID 500 MG TABLET PO SCH ×2 (08:34→17:05)
[2019-08-29] MEDS: MULTIVITS,STRESS FORMULA 1 TABLET PO SCH (08:34)
[2019-08-29] MEDS: INSULIN GLARGINE 100 UNITS/ML, PEN SQ-INSULIN SCH (08:34)
[2019-08-29] MEDS: CALCIUM CARBONATE 500 MG TAB.CHEW PO SCH ×2 (08:35→21:47)
[2019-08-29] MEDS: CLOPIDOGREL 75 MG TABLET PO SCH (08:35)
[2019-08-29] MEDS: METOPROLOL TARTRATE 100 MG TABLET PO SCH ×2 (08:35→21:48)
[2019-08-29] MEDS: OMEPRAZOLE 20 MG CAPSULE.DR PO SCH (08:35)
[2019-08-29] MEDS: LISINOPRIL 10 MG TABLET PO SCH (08:35)
[2019-08-29] MEDS: DOCUSATE 100 MG CAPSULE PO SCH ×2 (08:36→21:48)
[2019-08-29] MEDS: SODIUM CHLORIDE FLUSH 10ML SYR IVF SCH ×2 (08:36→21:49)
[2019-08-29] MEDS: SENNA/DOCUSATE TABLET PO SCH (08:36)
[2019-08-29] MEDS: HYDROcodone/APAP 5/325 TABLET PO PRN (09:37)
[2019-08-29 10:34] LABS: BASOPHILS # (AUTO) 0.03 x10^3/uL (0-0.1); BASOPHILS % (AUTO) 0 % (0-1); EOSINOPHILS # (AUTO) 0.04 x10^3/uL (0-0.4); EOSINOPHILS % (AUTO) 0 % (1-7); LYMPHOCYTES # (AUTO) 1.63 x10^3/uL (1-3.4); LYMPHOCYTES % (AUTO) 15 % (22-44); MD NO; MEAN CORPUSCULAR HEMOGLOBIN 29.7 pg (27.0-34.8); MEAN CORPUSCULAR HGB CONC 33.2 g/dL (32.4-35.8); MEAN CORPUSCULAR VOLUME 89.5 fL (80-100); MEAN PLATELET VOLUME 8.9 fL (7.4-10.4); MONOCYTES # (AUTO) 0.53 x10^3/uL (0.2-0.8); MONOCYTES % (AUTO) 5 % (2-9); NEUTROPHILS # (AUTO) 8.49 x10^3/uL (1.8-6.8); NEUTROPHILS % (AUTO) 79 % (42-75); PLATELET COUNT 241 x10^3/uL (130-400); RED CELL DISTRIBUTION WIDTH 15.6 % (9.6-15.2)
[2019-08-29 10:46] LABS: ANION GAP 10 mmol/L (5-15); CALCIUM 7.8 mg/dL (8.5-10.1); CHLORIDE 101 mmol/L (98-107)
[2019-08-29 10:48] LABS: CREATININE 0.99 mg/dL (0.55-1.02)
[2019-08-29 13:18] VITALS: BP 147/71
[2019-08-29] MEDS: CHOLECALCIFEROL 400 UNITS TABLET PO SCH (17:05)
[2019-08-29 19:54] VITALS: BP 151/69
[2019-08-29] MEDS: MELATONIN 3 MG TABLET PO SCH (21:47)
[2019-08-29] MEDS: ATORVASTATIN 40 MG TABLET PO SCH (21:47)
[2019-08-29] MEDS: CEFTRIAXONE PMX 2GM/50ML 50 ML IV SCH (22:48)
[2019-08-30 00:29] VITALS: BP 152/80
[2019-08-30] MEDS: ASPIRIN 81 MG TABLET EC PO SCH (05:02)
[2019-08-30 07:38] VITALS: BP 162/74
[2019-08-30] MEDS: DOCUSATE 100 MG CAPSULE PO SCH ×2 (08:32→21:42)
[2019-08-30 08:36] LABS: BASOPHILS # (AUTO) 0.03 x10^3/uL (0-0.1); BASOPHILS % (AUTO) 0 % (0-1); EOSINOPHILS # (AUTO) 0.09 x10^3/uL (0-0.4); EOSINOPHILS % (AUTO) 1 % (1-7); LYMPHOCYTES # (AUTO) 1.55 x10^3/uL (1-3.4); LYMPHOCYTES % (AUTO) 18 % (22-44); MD NO; MEAN CORPUSCULAR HEMOGLOBIN 28.9 pg (27.0-34.8); MEAN CORPUSCULAR HGB CONC 32.5 g/dL (32.4-35.8); MEAN CORPUSCULAR VOLUME 88.9 fL (80-100); MEAN PLATELET VOLUME 8.4 fL (7.4-10.4); MONOCYTES # (AUTO) 0.45 x10^3/uL (0.2-0.8); MONOCYTES % (AUTO) 5 % (2-9); NEUTROPHILS # (AUTO) 6.42 x10^3/uL (1.8-6.8); NEUTROPHILS % (AUTO) 75 % (42-75); PLATELET COUNT 238 x10^3/uL (130-400); RED BLOOD COUNT 2.88 x10^6/uL (3.82-5.3)
[2019-08-30] MEDS: INSULIN GLARGINE 100 UNITS/ML, PEN SQ-INSULIN SCH (08:44)
[2019-08-30] MEDS: INSULIN LISPRO 100 UNITS/ML, PEN SQ-INSULIN SCH ×4 (08:45→21:42)
[2019-08-30] MEDS: OMEPRAZOLE 20 MG CAPSULE.DR PO SCH (08:45)
[2019-08-30] MEDS: CLOPIDOGREL 75 MG TABLET PO SCH (08:45)
[2019-08-30] MEDS: MULTIVITS,STRESS FORMULA 1 TABLET PO SCH (08:45)
[2019-08-30] MEDS: LISINOPRIL 10 MG TABLET PO SCH (08:45)
[2019-08-30] MEDS: CALCIUM CARBONATE 500 MG TAB.CHEW PO SCH ×2 (08:45→21:42)
[2019-08-30] MEDS: METOPROLOL TARTRATE 100 MG TABLET PO SCH ×2 (08:45→21:42)
[2019-08-30] MEDS: SENNA/DOCUSATE TABLET PO SCH (08:46)
[2019-08-30] MEDS: ASCORBIC ACID 500 MG TABLET PO SCH ×2 (08:46→17:19)
[2019-08-30] MEDS: SODIUM CHLORIDE FLUSH 10ML SYR IVF SCH ×2 (08:46→21:43)
[2019-08-30 08:47] LABS: ANION GAP 6 mmol/L (5-15); CALCIUM 8.1 mg/dL (8.5-10.1); CHLORIDE 106 mmol/L (98-107); CREATININE 0.79 mg/dL (0.55-1.02)
[2019-08-30] MEDS: HYDROcodone/APAP 5/325 TABLET PO PRN ×2 (09:13→14:55)
[2019-08-30 13:20] VITALS: BP 120/66
[2019-08-30] MEDS: CHOLECALCIFEROL 400 UNITS TABLET PO SCH (17:19)
[2019-08-30 20:24] VITALS: BP 140/55
[2019-08-30] MEDS: ATORVASTATIN 40 MG TABLET PO SCH (21:42)
[2019-08-30] MEDS: MELATONIN 3 MG TABLET PO SCH (21:42)
[2019-08-30] MEDS: CEFTRIAXONE PMX 2GM/50ML 50 ML IV SCH (22:51)
[2019-08-31 01:28] VITALS: BP 151/64
[2019-08-31] MEDS: ASPIRIN 81 MG TABLET EC PO SCH (06:01)
[2019-08-31 06:52] VITALS: BP 158/69
[2019-08-31] MEDS: ACETAMINOPHEN 325 MG TABLET PO PRN (07:59)
[2019-08-31] MEDS: ASCORBIC ACID 500 MG TABLET PO SCH ×2 (07:59→16:29)
[2019-08-31] MEDS: SODIUM CHLORIDE FLUSH 10ML SYR IVF SCH ×2 (09:00→21:16)
[2019-08-31] MEDS: SENNA/DOCUSATE TABLET PO SCH (09:11)
[2019-08-31] MEDS: CALCIUM CARBONATE 500 MG TAB.CHEW PO SCH ×2 (09:11→21:16)
[2019-08-31] MEDS: MULTIVITS,STRESS FORMULA 1 TABLET PO SCH (09:11)
[2019-08-31] MEDS: DOCUSATE 100 MG CAPSULE PO SCH ×2 (09:11→21:16)
[2019-08-31] MEDS: INSULIN GLARGINE 100 UNITS/ML, PEN SQ-INSULIN SCH (09:12)
[2019-08-31] MEDS: METOPROLOL TARTRATE 100 MG TABLET PO SCH ×2 (09:12→21:16)
[2019-08-31] MEDS: LISINOPRIL 10 MG TABLET PO SCH (09:12)
[2019-08-31] MEDS: CLOPIDOGREL 75 MG TABLET PO SCH (09:12)
[2019-08-31] MEDS: OMEPRAZOLE 20 MG CAPSULE.DR PO SCH (09:12)
[2019-08-31] MEDS: INSULIN LISPRO 100 UNITS/ML, PEN SQ-INSULIN SCH ×4 (09:13→21:17)
[2019-08-31 12:20] VITALS: BP 147/78
[2019-08-31] MEDS: CHOLECALCIFEROL 400 UNITS TABLET PO SCH (16:29)
[2019-08-31 19:35] VITALS: BP 127/62
[2019-08-31] MEDS: ATORVASTATIN 40 MG TABLET PO SCH (21:16)
[2019-08-31] MEDS: MELATONIN 3 MG TABLET PO SCH (21:16)
[2019-08-31] MEDS: CEFTRIAXONE PMX 2GM/50ML 50 ML IV SCH (22:37)
[2019-09-01 02:01] VITALS: BP 159/71
[2019-09-01] MEDS: ASPIRIN 81 MG TABLET EC PO SCH (04:27)
[2019-09-01 04:58] LABS: BASOPHILS # (AUTO) 0.08 x10^3/uL (0-0.1); BASOPHILS % (AUTO) 1 % (0-1); EOSINOPHILS # (AUTO) 0.28 x10^3/uL (0-0.4); EOSINOPHILS % (AUTO) 3 % (1-7); LYMPHOCYTES # (AUTO) 1.97 x10^3/uL (1-3.4); LYMPHOCYTES % (AUTO) 24 % (22-44); MD NO; MEAN CORPUSCULAR HEMOGLOBIN 29.7 pg (27.0-34.8); MEAN CORPUSCULAR HGB CONC 32.9 g/dL (32.4-35.8); MEAN CORPUSCULAR VOLUME 90.3 fL (80-100); MEAN PLATELET VOLUME 8.6 fL (7.4-10.4); MONOCYTES # (AUTO) 0.49 x10^3/uL (0.2-0.8); MONOCYTES % (AUTO) 6 % (2-9); NEUTROPHILS # (AUTO) 5.52 x10^3/uL (1.8-6.8); NEUTROPHILS % (AUTO) 66 % (42-75); PLATELET COUNT 257 x10^3/uL (130-400); RED BLOOD COUNT 2.77 x10^6/uL (3.82-5.3); RED CELL DISTRIBUTION WIDTH 16.3 % (9.6-15.2)
[2019-09-01 04:59] LABS: HCT (SEDRATE) 25.1 % (34.6-47.8)
[2019-09-01 05:11] LABS: ALANINE AMINOTRANSFERASE 16 U/L (12-78); ALBUMIN 2.4 g/dL (3.4-5.0); ANION GAP 6 mmol/L (5-15); CALCIUM 7.9 mg/dL (8.5-10.1); CHLORIDE 107 mmol/L (98-107)
[2019-09-01 05:18] LABS: ALKALINE PHOSPHATASE 136 U/L (45-117); BILIRUBIN,TOTAL 0.3 mg/dL (0.2-1.0); CREATININE 0.85 mg/dL (0.55-1.02); TOTAL PROTEIN 6.1 g/dL (6.4-8.2)
[2019-09-01 07:24] VITALS: BP 162/67
[2019-09-01] MEDS: ASCORBIC ACID 500 MG TABLET PO SCH ×2 (08:47→16:18)
[2019-09-01] MEDS: CALCIUM CARBONATE 500 MG TAB.CHEW PO SCH (08:47)
[2019-09-01] MEDS: LISINOPRIL 10 MG TABLET PO SCH (08:47)
[2019-09-01] MEDS: MULTIVITS,STRESS FORMULA 1 TABLET PO SCH (08:47)
[2019-09-01] MEDS: INSULIN GLARGINE 100 UNITS/ML, PEN SQ-INSULIN SCH (08:48)
[2019-09-01] MEDS: INSULIN LISPRO 100 UNITS/ML, PEN SQ-INSULIN SCH ×3 (08:48→16:39)
[2019-09-01] MEDS: CLOPIDOGREL 75 MG TABLET PO SCH (08:48)
[2019-09-01] MEDS: SENNA/DOCUSATE TABLET PO SCH (08:48)
[2019-09-01] MEDS: METOPROLOL TARTRATE 100 MG TABLET PO SCH (08:49)
[2019-09-01] MEDS: OMEPRAZOLE 20 MG CAPSULE.DR PO SCH (08:49)
[2019-09-01] MEDS: SODIUM CHLORIDE FLUSH 10ML SYR IVF SCH (08:49)
[2019-09-01] MEDS: DOCUSATE 100 MG CAPSULE PO SCH (08:49)
[2019-09-01] MEDS: ACETAMINOPHEN 325 MG TABLET PO PRN (11:47)
[2019-09-01 12:19] VITALS: BP 136/76
[2019-09-01] MEDS ORDERED: ASCO500T6 PO (16:04)
[2019-09-01] MEDS ORDERED: INSU100I11 SQ-INSULIN (16:04)
[2019-09-01] MEDS ORDERED: LISI-167 PO (16:04)
[2019-09-01] MEDS ORDERED: ATOR40TA78 PO (16:04)
[2019-09-01] MEDS ORDERED: CEFT1FRO2 IV (16:04)
[2019-09-01] MEDS ORDERED: GABA300C10 PO (16:04)
[2019-09-01] MEDS ORDERED: INSU100I13 SQ-INSULIN (16:04)
[2019-09-01] MEDS ORDERED: DOCU-131 PO (16:04)
[2019-09-01] MEDS ORDERED: METO-99 PO (16:04)
[2019-09-01] MEDS ORDERED: ASPI81TA45 PO (16:04)
[2019-09-01] MEDS ORDERED: MULT1TAB76 PO (16:04)
[2019-09-01] MEDS ORDERED: CALC200T24 PO (16:04)
[2019-09-01] MEDS ORDERED: ONDA4TAB13 PO (16:04)
[2019-09-01] MEDS ORDERED: MELA3TAB56 PO (16:04)
[2019-09-01] MEDS: CHOLECALCIFEROL 400 UNITS TABLET PO SCH (16:19)
[2019-09-02] MEDS ORDERED: INSULIN GLARGINE 100 UNITS/ML, PEN SQ-INSULIN SCH (09:00)
== END 2019-09-01 18:08 | DRG 616 ==
LOC: OUT 09:38 → MERGE 11:30 → 4NE 13:35 → OUT 14:23 → 4NE 14:23 → 4EST 08-21 17:53
PROVIDERS: ADMIT Orthopaedic Surgery; ATTEND Internal Medicine
PROC: 0Y6W0Z0 Detachment at Left 4th Toe, Complete, Open Approach (ICD-10-PCS; principal; 2019-08-20 11:30)
PROC: 0T9B70Z Drainage of Bladder with Drainage Device, Via Natural or Artificial Opening (ICD-10-PCS; 2019-08-21)
PROC: B41D1ZZ Fluoroscopy of Aorta and Bilateral Lower Extremity Arteries using Low Osmolar Contrast (ICD-10-PCS; 2019-08-24)
PROC: 041L09Q Bypass Left Femoral Artery to Lower Extremity Artery with Autologous Venous Tissue, Open Approach (ICD-10-PCS; 2019-08-25)
PROC: 03HY32Z Insertion of Monitoring Device into Upper Artery, Percutaneous Approach (ICD-10-PCS; 2019-08-25)
PROC: 30233N1 Transfusion of Nonautologous Red Blood Cells into Peripheral Vein, Percutaneous Approach (ICD-10-PCS; 2019-08-26)
PROC: 02HV33Z Insertion of Infusion Device into Superior Vena Cava, Percutaneous Approach (ICD-10-PCS; 2019-08-27)
PROC: B5181ZA Fluoroscopy of Superior Vena Cava using Low Osmolar Contrast, Guidance (ICD-10-PCS; 2019-08-27)
PROC: B548ZZA Ultrasonography of Superior Vena Cava, Guidance (ICD-10-PCS; 2019-08-27)
DX: E11.69 Type 2 diabetes mellitus with other specified complication (principal); G93.41 Metabolic encephalopathy; E11.52 Type 2 diabetes mellitus with diabetic peripheral angiopathy with gangrene; E87.1 Hypo-osmolality and hyponatremia; M86.8X7 Other osteomyelitis, ankle and foot; E11.621 Type 2 diabetes mellitus with foot ulcer; I77.9 Disorder of arteries and arterioles, unspecified; I12.9 Hypertensive chronic kidney disease with stage 1 through stage 4 chronic kidney disease, or unspecified chronic kidney disease; L97.529 Non-pressure chronic ulcer of other part of left foot with unspecified severity; D64.9 Anemia, unspecified; E11.21 Type 2 diabetes mellitus with diabetic nephropathy; E11.40 Type 2 diabetes mellitus with diabetic neuropathy, unspecified; E11.22 Type 2 diabetes mellitus with diabetic chronic kidney disease; E11.649 Type 2 diabetes mellitus with hypoglycemia without coma; N18.2 Chronic kidney disease, stage 2 (mild); I95.9 Hypotension, unspecified; I70.202 Unspecified atherosclerosis of native arteries of extremities, left leg; E11.65 Type 2 diabetes mellitus with hyperglycemia; E66.9 Obesity, unspecified; I77.1 Stricture of artery; L08.9 Local infection of the skin and subcutaneous tissue, unspecified; R32 Unspecified urinary incontinence; Z79.4 Long term (current) use of insulin; Z83.3 Family history of diabetes mellitus; Z90.710 Acquired absence of both cervix and uterus
CPT/HCPCS: 36415; 36573; 36600; 70450; 70551; 75710; 80048; 80053; 80061; 80069; 80076; 81003; 82140; 82330; 82607; 82803; 82947; 82962; 83036; 83605; 83735; 84132; 84295; 84443; 84484; 85014; 85018; 85025; 85651; 86140; 86850; 86900; 86923; 87015; 87070; 87075; 87076; 87077; 87102; 87116; 87186; 87205; 87206; 93005; 93922; 93925; 93970; 99156; 99157; C1894; G0378; J0295; J0690; J0696; J1100; J1170; J1644; J2250; J2405; J2550; J2704; J2720; J3010; J3370; C1751; C1757; C1760; C1769; J0360; J1815; J2310; J2370; J3475; J7030; J7040; J7050; P9016

== ENCOUNTER → 2019-09-25 | Outpatient (CLI) | payer MEDICARE ==
[~2019-09-25] MED LIST changes: +ASCO500T6 PO; +ASPI81TA45 PO; +ATOR40TA78 PO; +CALC200T24 PO; +CEFT1FRO2 IV; +DICL100T80 PO; +DOCU-131 PO; +GABA300C10 PO; +INSU100I11 SQ-INSULIN; +INSU100I13 SQ-INSULIN; +LISI-167 PO; +MELA3TAB56 PO; +MULT1TAB76 PO; +ONDA4TAB13 PO; +[UNRECOGNIZED DRUG - OTHER] PO
== END | disposition home or self-care (01) ==
LOC: WOUND 09:00
PROVIDERS: ATTEND Podiatrist Foot & Ankle Surgery
DX: T81.31XA Disruption of external operation (surgical) wound, not elsewhere classified, initial encounter (principal); E11.621 Type 2 diabetes mellitus with foot ulcer; L97.522 Non-pressure chronic ulcer of other part of left foot with fat layer exposed; E11.69 Type 2 diabetes mellitus with other specified complication; M86.172 Other acute osteomyelitis, left ankle and foot; E11.40 Type 2 diabetes mellitus with diabetic neuropathy, unspecified; E66.9 Obesity, unspecified; E11.21 Type 2 diabetes mellitus with diabetic nephropathy; E11.52 Type 2 diabetes mellitus with diabetic peripheral angiopathy with gangrene; I96 Gangrene, not elsewhere classified; E11.22 Type 2 diabetes mellitus with diabetic chronic kidney disease; I12.9 Hypertensive chronic kidney disease with stage 1 through stage 4 chronic kidney disease, or unspecified chronic kidney disease; N18.2 Chronic kidney disease, stage 2 (mild); I77.1 Stricture of artery; Z68.34 Body mass index [BMI] 34.0-34.9, adult; Z79.4 Long term (current) use of insulin; Y83.8 Other surgical procedures as the cause of abnormal reaction of the patient, or of later complication, without mention of misadventure at the time of the procedure; Y92.89 Other specified places as the place of occurrence of the external cause
CPT/HCPCS: 11042; G0463

== ENCOUNTER 2019-10-03 06:47 | Emergency (ER) | payer SELFPAY ==
[~2019-10-03] VITALS: Ht 160 cm; Wt 74.4 kg
--- NOTE | 2019-10-03 07:12 | NUR ---
BIB EMS FROM [facility] LEFT GROIN BLEEEDING. S/P ? LEFT ARTERIAL GROIN PROCEDURE 5 WEEKS AGO. ON ANTIBIOTICS FOR ? INFECTION. FAMILY RPTS THAT LARGE LUMP WAS NOTICED ON SUNDAY. THIS MORNING BLEEDING WAS NOTED AT LEFT GROIN. EMS RPTS APPROX 800ML OF BLOOD LOSS WITH A BP AT SCENE OF 86/50. MANUAL PRESSURE APPLIED AND PT TRANSPORTED. PT ARRIVES AWAKE ALERT (ITALIAN SPEAKING ONLY) DAUGHTER AT BEDSIDE TO TRANSLATE. PT ON MONITORS AND DR PRESSLEY AT BEDSIDE. FEMSTOP PLACED BUT NO PRESSURE APPLIED. MANUAL PRESSURE RELEASED AND FEMORAL PULSE PALPATED, FEELS LIKE A THRILL. NO ACTIVE BLEEDING NOTED AT SITE. RIGHT FA 18G PIV EST AND LABS DRAWN. IVF INFUSING TKO. BP STABLE. ASSESSMENT AND POC DISCUSSED WITH FAMILY AND QUESTIONS ANSWERED.
--- NOTE | 2019-10-03 07:26 | NUR ---
THIS RN IS UNABLE TO LOCATE A PALPALPABLE LEFT CP OR PT PULSE NOR CAN I OBTAIN A PULSE USING DOPPLER. FOOT IS WARM WITH A 3 SEC CAP REFILL. PULSE ASSESSMENT DISCUSSED WITH DR. PRESSLEY.
--- NOTE | 2019-10-03 07:31 | NUR ---
MAP NOW IN 50'S. MANUAL BP CRRELATES WITH MONITOR BP. DR PRESSLEY DISCUSSED BLOOD ADMINISTRATION WITH FAMILY. FAMILY AND PT AGREE.
[2019-10-03 07:32] VITALS: BP 116/42
[2019-10-03] MEDS ORDERED: KETAMINE 10 MG/ML, 20ML ONE (10:09)
[2019-10-03] MEDS ORDERED: MIDAZOLAM 10MG/2 ML ONE (10:09)
[2019-10-03] MEDS ORDERED: PROPOFOL 10 MG/ML, 20ML ONE (10:10)
[2019-10-03] MEDS ORDERED: NEOSTIGMINE 1 MG/ML, 10ML ONE (10:10)
[2019-10-03] MEDS ORDERED: DEXAMETHASONE 4 MG/ML, 1ML ONE (10:10)
[2019-10-03] MEDS ORDERED: ONDANSETRON 2MG/ML, 2ML ONE (10:10)
[2019-10-03] MEDS ORDERED: ROCURONIUM 10MG/ML,5ML ONE (10:10)
[2019-10-03] MEDS ORDERED: FENTANYL PF 250 MCG/5ML ONE ×2 (10:10)
[2019-10-03] MEDS ORDERED: GLYCOPYRROLATE 0.2MG/1ML, 5ML ONE (10:10)
[2019-10-03] MEDS ORDERED: SUCCINYLCHOLINE 20 MG/ML, 10ML ONE (10:10)
== END 2019-10-03 06:58 | disposition home or self-care (01) ==
LOC: MERGE 06:50 → ED 06:50
DX: Z02.9 Encounter for administrative examinations, unspecified (principal)
CPT/HCPCS: J1100; J2250; J2405; J2704; J2710; J3010; J0330

== ENCOUNTER 2019-10-03 06:51 | Inpatient (IN) | payer MEDICARE, MEDICAID ==
[~2019-10-03] VITALS: Ht 157.5 cm; Wt 73.5 kg
--- NOTE | 2019-10-03 06:52 | NUR ---
BIB EMS FROM [facility]. PT X/P LEFT GROIN ARTERIAL BIPAS IN AUGUST. PER FAMILY LEFT GROIN STARTED BLEEDING THIS MORNING. EMS EST 800ML OF BLOOD LOSS BP WAS 86/50. EMS WAS ABLE TO OBTAIN HEMOSTASIS WITH MANUAL PRESSURE. PT ARRIVES A & 0, NO ACTIVE BLEEDING NOTED.
[2019-10-03 07:04] LABS: BASOPHILS # (AUTO) 0.02 x10^3/uL (0-0.1); BASOPHILS % (AUTO) 0 % (0-1); EOSINOPHILS # (AUTO) 0.18 x10^3/uL (0-0.4); EOSINOPHILS % (AUTO) 3 % (1-7); LYMPHOCYTES # (AUTO) 1.44 x10^3/uL (1-3.4); LYMPHOCYTES % (AUTO) 20 % (22-44); MD NO; MEAN CORPUSCULAR HEMOGLOBIN 27.6 pg (27.0-34.8); MEAN CORPUSCULAR HGB CONC 31.2 g/dL (32.4-35.8); MEAN CORPUSCULAR VOLUME 88.6 fL (80-100); MEAN PLATELET VOLUME 8.1 fL (7.4-10.4); MONOCYTES # (AUTO) 0.29 x10^3/uL (0.2-0.8); MONOCYTES % (AUTO) 4 % (2-9); NEUTROPHILS # (AUTO) 5.31 x10^3/uL (1.8-6.8); NEUTROPHILS % (AUTO) 73 % (42-75); PLATELET COUNT 281 x10^3/uL (130-400); RED BLOOD COUNT 3.44 x10^6/uL (3.82-5.3); RED CELL DISTRIBUTION WIDTH 17.5 % (9.6-15.2)
[2019-10-03 07:15] LABS: ALANINE AMINOTRANSFERASE 20 U/L (12-78); ALBUMIN 3.3 g/dL (3.4-5.0); ANION GAP 7 mmol/L (5-15); CALCIUM 8.7 mg/dL (8.5-10.1); CHLORIDE 108 mmol/L (98-107); CREATININE 0.86 mg/dL (0.55-1.02)
[2019-10-03 07:18] LABS: ALKALINE PHOSPHATASE 141 U/L (45-117); BILIRUBIN,TOTAL 0.5 mg/dL (0.2-1.0)
[2019-10-03 07:27] LABS: INTERNATIONAL NORMALIZED RATIO 1.08 (0.93-1.1); PROTHROMBIN TIME 11.3 Seconds (9.6-11.5)
[2019-10-03 07:46] VITALS: BP 141/43
--- NOTE | 2019-10-03 07:59 | NUR ---
GROIN SITE BLEEDING, FEMSTOP PLACED AND DR. PRESSLEY AWARE. PT C/O INCREASED PAIN WITH APPLICATION OF FEMSTOP. PAIN MEDS ORDERED AND ADMIN NOTED.
[2019-10-03 08:00] VITALS: BP 150/30
[2019-10-03] MEDS ORDERED: FENTANYL PF 100 MCG/2ML IVPush ONE (08:00)
[2019-10-03] MEDS ORDERED: FENTANYL PF 100 MCG/2ML ONE ×2 (08:03→10:50)
[2019-10-03] MEDS ORDERED: ONDANSETRON 2MG/ML, 2ML ONE ×3 (08:03→11:10)
[2019-10-03 08:15] VITALS: BP 127/46
[2019-10-03 08:29] VITALS: BP 134/35
[2019-10-03] MEDS ORDERED: ONDANSETRON 2MG/ML, 2ML IVPush ONE ×2 (08:30→11:00)
[2019-10-03] MEDS ORDERED: PLEASE ENTER HEIGHT AND WEIGHT MC SCH (08:30)
--- NOTE | 2019-10-03 08:37 | NUR ---
LATE ENTRY FOR PT ARRIVAL 0650. DR PRESSLEY AT BEDSIDE. PT ON MONITORS ALERT [place] SPEAKING WITH DAUGHTER PROVIDEING TRANSLATION. 18 PIV EST AND LABS DRAWN, MANUAL PRESSURE RELEASED ON LEFT GROIN AND NO BLEEDING NOTED. PALPABLE FEM PULSE NOTED WITH +BRUIT AND THRILL NOTED. UNABLE TO PALPATE LEFT CP/PT PULSE OR OBTAIN VIA DOPPLER. FOOT IS WARM WITH CAP REFILL OF [address] PRESSLEY AWARE.
[2019-10-03] MEDS: FENTANYL PF 100 MCG/2ML IVPush PRN ×2 (08:50→09:22)
[2019-10-03] MEDS ORDERED: PROMETHAZINE 25 MG/ML, 1ML IM ONE (09:00)
[2019-10-03] MEDS ORDERED: PROMETHAZINE 25 MG/ML, 1ML ONE (09:18)
--- NOTE | 2019-10-03 10:00 | NUR ---
PT VOIDED IN BED. PT LOG ROLLED AND CLEAN DRY CHUX PLACED. PT OLLERATED WELL
--- NOTE | 2019-10-03 10:13 | NUR ---
PT TO CT FOR CTA, RN & EMT ESCORT WELL DAUGHTER TO PROVIDE INTERPRITING. PT TOLLERATED CT WELL AND RTD TO ED W/O INCIDENT. VSS, AND NO ACTIVIE BLEEDING NOTED AT SITE.
--- NOTE | 2019-10-03 10:14 | NUR ---
LATE ENTRY 929 DR MKCEON AT BEDSIDE, SBAR RPT REVIEWED. PRESSURE ON FEMSTOP RELEASED AND NO ACTIVE VLEEDING NOTED.
--- NOTE | 2019-10-03 10:23 | NUR ---
DAUGHTER REMOVED ALL PTS JEWELRY AND WILL TAKE WITH HER.
--- NOTE | 2019-10-03 10:23 | NUR ---
DR MCKEON REVIEWED CT RESULTS WITH FAMILY. PLAN FOR OR TODDAY DISCUSSED.
[2019-10-03] MEDS ORDERED: HEPARIN 5,000 UNITS/ML, 1ML ONE (10:52)
--- NOTE | 2019-10-03 10:58 | NUR ---
PT MED NOTED FOR PAIN. ADDITIONAL ZOFRAN GIVEN PRIOR TO PAIN MED.
[2019-10-03] MEDS ORDERED: morphine SULFATE 10 MG/ML, 1ML IVPush PRN (11:00)
[2019-10-03] MEDS ORDERED: ONDANSETRON 2MG/ML, 2ML IVPush PRN (11:00)
[2019-10-03] MEDS ORDERED: GABAPENTIN 300 MG CAPSULE PO PRN (11:00)
[2019-10-03] MEDS ORDERED: POLYETHYLENE GLYCOL 17 GM PACKET PO PRN (11:00)
[2019-10-03] MEDS ORDERED: VISIPAQUE 270 MG/ML, 50ML BOTTLE ONE (11:00)
[2019-10-03] MEDS ORDERED: BISACODYL 10 MG SUPP PR PRN (11:00)
[2019-10-03] MEDS ORDERED: LABETALOL 5MG/ML, 20ML IVPush PRN (11:00)
[2019-10-03] MEDS: INSULIN LISPRO 100 UNITS/ML, PEN SQ-INSULIN SCH ×3 (11:00→21:07)
[2019-10-03] MEDS ORDERED: FENTANYL PF 100 MCG/2ML IVPush PRN (11:00)
--- NOTE | 2019-10-03 11:05 | NUR ---
PT VOIDED, OR TEAM ON THE WEAY TO GET PT. PT IN PAIN AND ASKS NOT TO ME MOVED. FAMILY VERBALIZES UNDERSTANDING THAT OR TEAM IS COMMING W/I NEXT 5 MIN AND ONCE THEY GET PT TO OR THEY WILL GET HER OFF OF THE WET CHUX.
--- NOTE | 2019-10-03 11:09 | NUR ---
BEDSIDE SBAR RPT TO RO RN, ARNIE AND ANESTHESIOLOGIST. QUESTIONS ANSWERED. PT TO OR WITH OR TEAM AND FAMILY. PT VSS AND APPEARS MORE COMFORTABLE.
[2019-10-03] MEDS ORDERED: PROTAMINE SULFATE 10 MG/ML, 5ML ONE (11:10)
[2019-10-03] MEDS ORDERED: PROPOFOL 10 MG/ML, 20ML ONE (11:10)
[2019-10-03] MEDS ORDERED: PHENYLEPHRINE 10 MG/ML ONE (11:10)
[2019-10-03] MEDS ORDERED: ROCURONIUM 10 MG/ML,10ML ONE (11:10)
[2019-10-03] MEDS ORDERED: CEFAZOLIN 1,000 MG ONE (11:10)
[2019-10-03] MEDS ORDERED: LIDOCAINE-MPF 2% ,5ML ONE (11:10)
[2019-10-03] MEDS ORDERED: MIDAZOLAM 1 MG/ML, 2ML ONE (11:10)
[2019-10-03] MEDS ORDERED: FENTANYL PF 250 MCG/5ML ONE ×2 (11:10)
[2019-10-03] MEDS ORDERED: SUGAMMADEX 200 MG/2 ML IVPush ONE (11:10)
[2019-10-03] MEDS ORDERED: KETAMINE 10 MG/ML, 20ML ONE (11:10)
[2019-10-03] MEDS ORDERED: EPHEDRINE 50 MG/ML, 1ML ONE (11:10)
[2019-10-03] MEDS ORDERED: CALCIUM CHLORIDE 10%, 10ML SYR ONE ×2 (11:10→13:00)
[2019-10-03] MEDS ORDERED: OMNIPAQUE 350 MG/ML, 100ML BOTTLE ONE (11:49)
[2019-10-03] MEDS ORDERED: CALCIUM CHLORIDE 13.6 MEQ/10 ML ONE (13:00)
[2019-10-03] MEDS ORDERED: SODIUM BICARB 8.4%, 50ML SYRINGE ONE (13:00)
[2019-10-03] MEDS ORDERED: THROMBIN 5,000 UNIT VIAL TP ONE ×2 (13:15)
[2019-10-03] MEDS ORDERED: FENTANYL PF 100 MCG/2ML IV PRN (13:30)
[2019-10-03] MEDS ORDERED: ONDANSETRON ODT 8 MG PO PRN (13:30)
[2019-10-03] MEDS ORDERED: PROMETHAZINE 25 MG/ML, 1ML IM PRN (13:30)
[2019-10-03] MEDS ORDERED: ACETAMINOPHEN 325 MG TABLET PO PRN (13:30)
[2019-10-03] MEDS ORDERED: ONDANSETRON 2MG/ML, 2ML IV PRN (13:30)
[2019-10-03] MEDS ORDERED: LABETALOL 5MG/ML, 20ML IV PRN (13:30)
[2019-10-03] MEDS ORDERED: OXYcodone 5 MG/5 ML ORAL.SOL UDC PO PRN (13:30)
[2019-10-03] MEDS ORDERED: hydrALAzine 20 MG/ML, 1ML IV PRN (13:30)
[2019-10-03] MEDS ORDERED: LORazepam 2 MG/ML, 1ML IVPush PRN (13:30)
[2019-10-03] MEDS ORDERED: HYDROmorphone 2 MG/ML, 1ML IVPush PRN (13:30)
[2019-10-03] MEDS ORDERED: PROMETHAZINE 25 MG/ML, 1ML IV PRN (13:30)
[2019-10-03] MEDS: CEFTRIAXONE PMX 2GM/50ML 50 ML IV SCH (18:20)
[2019-10-03] MEDS: OXYcodone IR 5MG TABLET PO PRN (20:11)
[2019-10-03] MEDS: SALMETEROL XINAFOATE INH SCH (20:11)
[2019-10-03] MEDS: ATORVASTATIN 40 MG TABLET PO SCH (20:11)
[2019-10-03] MEDS: SODIUM CHLORIDE 0.9% 1,000 ML IV SCH (20:12)
[2019-10-03] MEDS ORDERED: METOPROLOL TARTRATE 100 MG TABLET PO SCH (21:00)
[2019-10-03 22:03] LABS: BASOPHILS # (AUTO) 0.03 x10^3/uL (0-0.1); BASOPHILS % (AUTO) 0 % (0-1); EOSINOPHILS # (AUTO) 0.05 x10^3/uL (0-0.4); EOSINOPHILS % (AUTO) 1 % (1-7); LYMPHOCYTES # (AUTO) 1.05 x10^3/uL (1-3.4); LYMPHOCYTES % (AUTO) 11 % (22-44); MD NO; MEAN CORPUSCULAR HEMOGLOBIN 29.6 pg (27.0-34.8); MEAN CORPUSCULAR HGB CONC 32.5 g/dL (32.4-35.8); MEAN PLATELET VOLUME 8.5 fL (7.4-10.4); MONOCYTES # (AUTO) 0.36 x10^3/uL (0.2-0.8); MONOCYTES % (AUTO) 4 % (2-9); NEUTROPHILS # (AUTO) 7.75 x10^3/uL (1.8-6.8); NEUTROPHILS % (AUTO) 84 % (42-75); PLATELET COUNT 208 x10^3/uL (130-400); RED BLOOD COUNT 2.65 x10^6/uL (3.82-5.3); RED CELL DISTRIBUTION WIDTH 15.7 % (9.6-15.2)
[2019-10-03] MEDS: ACETAMINOPHEN 325 MG TABLET PO PRN (23:59)
[2019-10-04] VITALS (9 sets, daily range): BP systolic 108–138; BP diastolic 33–71
[2019-10-04 04:22] LABS: ALANINE AMINOTRANSFERASE 18 U/L (12-78); ALBUMIN 2.2 g/dL (3.4-5.0); ANION GAP 8 mmol/L (5-15); CHLORIDE 112 mmol/L (98-107); CREATININE 0.87 mg/dL (0.55-1.02)
[2019-10-04 04:25] LABS: ALKALINE PHOSPHATASE 77 U/L (45-117); BILIRUBIN,TOTAL 0.5 mg/dL (0.2-1.0); TOTAL PROTEIN 4.6 g/dL (6.4-8.2)
[2019-10-04 04:31] LABS: MEAN CORPUSCULAR HEMOGLOBIN 29.8 pg (27.0-34.8); MEAN CORPUSCULAR HGB CONC 32.6 g/dL (32.4-35.8); MEAN CORPUSCULAR VOLUME 91.2 fL (80-100); MEAN PLATELET VOLUME 8.6 fL (7.4-10.4); PLATELET COUNT 205 x10^3/uL (130-400); RED BLOOD COUNT 2.28 x10^6/uL (3.82-5.3); RED CELL DISTRIBUTION WIDTH 16.1 % (9.6-15.2)
[2019-10-04 05:53] LABS: BASOPHILS # (AUTO) 0.03 x10^3/uL (0-0.1); BASOPHILS % (AUTO) 0 % (0-1); EOSINOPHILS # (AUTO) 0.13 x10^3/uL (0-0.4); EOSINOPHILS % (AUTO) 2 % (1-7); LYMPHOCYTES # (AUTO) 1.46 x10^3/uL (1-3.4); LYMPHOCYTES % (AUTO) 19 % (22-44); MD SCAN; MONOCYTES # (AUTO) 0.43 x10^3/uL (0.2-0.8); MONOCYTES % (AUTO) 6 % (2-9); NEUTROPHILS % (AUTO) 73 % (42-75)
[2019-10-04] MEDS: SODIUM CHLORIDE 0.9% 1,000 ML IV SCH ×2 (06:22→17:14)
[2019-10-04] MEDS: INSULIN LISPRO 100 UNITS/ML, PEN SQ-INSULIN SCH ×4 (07:00→20:15)
[2019-10-04] MEDS: LISINOPRIL 10 MG TABLET PO SCH (08:21)
[2019-10-04] MEDS: METOPROLOL TARTRATE 100 MG TABLET PO SCH ×2 (08:21→20:15)
[2019-10-04] MEDS: SENNA/DOCUSATE TABLET PO SCH (08:21)
[2019-10-04] MEDS: SALMETEROL XINAFOATE INH SCH ×2 (09:00→19:21)
[2019-10-04] MEDS: OXYcodone IR 5MG TABLET PO PRN ×2 (11:12→15:43)
[2019-10-04] MEDS: CEFTRIAXONE PMX 2GM/50ML 50 ML IV SCH (15:35)
[2019-10-04] MEDS: ATORVASTATIN 40 MG TABLET PO SCH (20:15)
[2019-10-04] MEDS: ACETAMINOPHEN 325 MG TABLET PO PRN (20:15)
[2019-10-05 03:47] LABS: MEAN CORPUSCULAR HEMOGLOBIN 30.3 pg (27.0-34.8); MEAN CORPUSCULAR HGB CONC 32.9 g/dL (32.4-35.8); MEAN CORPUSCULAR VOLUME 92.1 fL (80-100); MEAN PLATELET VOLUME 8.7 fL (7.4-10.4); PLATELET COUNT 154 x10^3/uL (130-400); RED BLOOD COUNT 2.37 x10^6/uL (3.82-5.3); RED CELL DISTRIBUTION WIDTH 15.6 % (9.6-15.2)
[2019-10-05 04:00] VITALS: BP 139/49
[2019-10-05 04:10] LABS: BASOPHILS # (AUTO) 0.03 x10^3/uL (0-0.1); BASOPHILS % (AUTO) 0 % (0-1); EOSINOPHILS # (AUTO) 0.36 x10^3/uL (0-0.4); EOSINOPHILS % (AUTO) 5 % (1-7); LYMPHOCYTES # (AUTO) 1.17 x10^3/uL (1-3.4); LYMPHOCYTES % (AUTO) 16 % (22-44); MD SCAN; MONOCYTES # (AUTO) 0.38 x10^3/uL (0.2-0.8); MONOCYTES % (AUTO) 5 % (2-9); NEUTROPHILS # (AUTO) 5.25 x10^3/uL (1.8-6.8); NEUTROPHILS % (AUTO) 73 % (42-75)
[2019-10-05] MEDS: SODIUM CHLORIDE 0.9% 1,000 ML IV SCH (04:35)
[2019-10-05] MEDS: LISINOPRIL 10 MG TABLET PO SCH (08:36)
[2019-10-05] MEDS: METOPROLOL TARTRATE 100 MG TABLET PO SCH ×2 (08:36→20:52)
[2019-10-05] MEDS: SALMETEROL XINAFOATE INH SCH ×2 (08:37→20:50)
[2019-10-05] MEDS: SENNA/DOCUSATE TABLET PO SCH (08:37)
[2019-10-05] MEDS: INSULIN LISPRO 100 UNITS/ML, PEN SQ-INSULIN SCH ×4 (08:43→21:01)
[2019-10-05 18:49] VITALS: BP 156/77
[2019-10-05 19:58] VITALS: BP 151/62
[2019-10-05] MEDS: ATORVASTATIN 40 MG TABLET PO SCH (20:52)
[2019-10-06 03:37] VITALS: BP 129/66
[2019-10-06 05:05] LABS: MEAN CORPUSCULAR HEMOGLOBIN 30.2 pg (27.0-34.8); MEAN CORPUSCULAR HGB CONC 32.7 g/dL (32.4-35.8); MEAN CORPUSCULAR VOLUME 92.1 fL (80-100); MEAN PLATELET VOLUME 8.4 fL (7.4-10.4); PLATELET COUNT 157 x10^3/uL (130-400); RED BLOOD COUNT 2.35 x10^6/uL (3.82-5.3); RED CELL DISTRIBUTION WIDTH 15.7 % (9.6-15.2)
[2019-10-06 06:01] LABS: BASOPHILS # (AUTO) 0.02 x10^3/uL (0-0.1); BASOPHILS % (AUTO) 0 % (0-1); EOSINOPHILS # (AUTO) 0.26 x10^3/uL (0-0.4); EOSINOPHILS % (AUTO) 4 % (1-7); LYMPHOCYTES # (AUTO) 1.06 x10^3/uL (1-3.4); LYMPHOCYTES % (AUTO) 18 % (22-44); MD SCAN; MONOCYTES % (AUTO) 7 % (2-9); NEUTROPHILS % (AUTO) 70 % (42-75)
[2019-10-06] MEDS: SALMETEROL XINAFOATE INH SCH ×2 (07:56→21:00)
[2019-10-06 08:09] VITALS: BP 155/74
[2019-10-06] MEDS: METOPROLOL TARTRATE 100 MG TABLET PO SCH ×2 (08:13→21:32)
[2019-10-06] MEDS: OXYcodone IR 5MG TABLET PO PRN ×2 (08:13→14:22)
[2019-10-06] MEDS: INSULIN LISPRO 100 UNITS/ML, PEN SQ-INSULIN SCH ×4 (08:14→21:32)
[2019-10-06] MEDS: LISINOPRIL 10 MG TABLET PO SCH (08:14)
[2019-10-06] MEDS: SENNA/DOCUSATE TABLET PO SCH (08:14)
[2019-10-06 14:22] VITALS: BP 159/73
[2019-10-06 20:23] VITALS: BP 159/71
[2019-10-06] MEDS: ATORVASTATIN 40 MG TABLET PO SCH (21:32)
[2019-10-07 04:46] VITALS: BP 149/75
[2019-10-07 07:18] VITALS: BP 103/63
[2019-10-07] MEDS: SALMETEROL XINAFOATE INH SCH ×2 (08:23→21:00)
[2019-10-07 08:25] VITALS: BP 162/70
[2019-10-07] MEDS: INSULIN LISPRO 100 UNITS/ML, PEN SQ-INSULIN SCH ×4 (08:29→19:50)
[2019-10-07] MEDS: SENNA/DOCUSATE TABLET PO SCH (08:29)
[2019-10-07] MEDS: METOPROLOL TARTRATE 100 MG TABLET PO SCH ×2 (08:29→19:51)
[2019-10-07] MEDS: LISINOPRIL 10 MG TABLET PO SCH (08:29)
[2019-10-07] MEDS: ATORVASTATIN 40 MG TABLET PO SCH (19:50)
[2019-10-07 20:12] VITALS: BP 156/76
[2019-10-08 04:15] VITALS: BP 158/69
[2019-10-08 04:51] LABS: ANION GAP 7 mmol/L (5-15); CALCIUM 8.2 mg/dL (8.5-10.1); CHLORIDE 109 mmol/L (98-107)
[2019-10-08 04:54] LABS: CREATININE 0.71 mg/dL (0.55-1.02)
[2019-10-08 05:52] LABS: MEAN CORPUSCULAR HEMOGLOBIN 30.2 pg (27.0-34.8); MEAN CORPUSCULAR HGB CONC 32.5 g/dL (32.4-35.8); MEAN PLATELET VOLUME 8.5 fL (7.4-10.4); PLATELET COUNT 175 x10^3/uL (130-400); RED BLOOD COUNT 2.63 x10^6/uL (3.82-5.3); RED CELL DISTRIBUTION WIDTH 16.1 % (9.6-15.2)
[2019-10-08 05:53] LABS: BASOPHILS # (AUTO) 0.04 x10^3/uL (0-0.1); BASOPHILS % (AUTO) 1 % (0-1); EOSINOPHILS # (AUTO) 0.14 x10^3/uL (0-0.4); EOSINOPHILS % (AUTO) 3 % (1-7); LYMPHOCYTES # (AUTO) 1.44 x10^3/uL (1-3.4); LYMPHOCYTES % (AUTO) 26 % (22-44); MD SCAN; MONOCYTES # (AUTO) 0.35 x10^3/uL (0.2-0.8); MONOCYTES % (AUTO) 6 % (2-9); NEUTROPHILS # (AUTO) 3.54 x10^3/uL (1.8-6.8); NEUTROPHILS % (AUTO) 64 % (42-75)
[2019-10-08 07:25] VITALS: BP 196/88
[2019-10-08] MEDS: INSULIN LISPRO 100 UNITS/ML, PEN SQ-INSULIN SCH ×3 (07:33→16:02)
[2019-10-08] MEDS: SALMETEROL XINAFOATE INH SCH (09:00)
[2019-10-08] MEDS: OXYcodone IR 5MG TABLET PO PRN (09:59)
[2019-10-08] MEDS: SENNA/DOCUSATE TABLET PO SCH (09:59)
[2019-10-08] MEDS: LISINOPRIL 10 MG TABLET PO SCH (09:59)
[2019-10-08] MEDS: METOPROLOL TARTRATE 100 MG TABLET PO SCH (09:59)
[2019-10-08] MEDS ORDERED: FLU VACC QS2019-20 36MOS UP/PF 0.5 ML IM-VACC ONE (15:00)
[2019-10-24] MEDS ORDERED: CEFD300C37 PO ×2 (12:37)
[2019-10-29] MEDS ORDERED: HYDR-3342 PO (12:13)
[2019-10-29] MEDS ORDERED: ISOS10TA2 PO (12:13)
[2019-10-29] MEDS ORDERED: VANC1VIA3 PO (12:13)
[2019-10-29] MEDS ORDERED: CARV12.52 PO (12:13)
[2019-10-29] MEDS ORDERED: ACID1TAB7 PO (12:13)
[2019-10-29] MEDS ORDERED: FERR-51 PO (12:19)
== END 2019-10-08 19:30 | disposition home health service (06) | DRG 252 ==
LOC: ED 07:12 → EDIP 10:00 → CCU 15:10 → 4NE 10-05 11:03 → 4NW 10-06 15:35
PROVIDERS: ADMIT Internal Medicine; ATTEND Internal Medicine
PROC: 04CL0ZZ Extirpation of Matter from Left Femoral Artery, Open Approach (ICD-10-PCS; 2019-10-03)
PROC: 30233K1 Transfusion of Nonautologous Frozen Plasma into Peripheral Vein, Percutaneous Approach (ICD-10-PCS; 2019-10-03)
PROC: 30233N1 Transfusion of Nonautologous Red Blood Cells into Peripheral Vein, Percutaneous Approach (ICD-10-PCS; 2019-10-03)
PROC: 30233R1 Transfusion of Nonautologous Platelets into Peripheral Vein, Percutaneous Approach (ICD-10-PCS; 2019-10-03)
PROC: B40G1ZZ Plain Radiography of Left Lower Extremity Arteries using Low Osmolar Contrast (ICD-10-PCS; 2019-10-03)
PROC: 03HY32Z Insertion of Monitoring Device into Upper Artery, Percutaneous Approach (ICD-10-PCS; 2019-10-03)
PROC: 05HY33Z Insertion of Infusion Device into Upper Vein, Percutaneous Approach (ICD-10-PCS; 2019-10-03)
PROC: B543ZZA Ultrasonography of Right Jugular Veins, Guidance (ICD-10-PCS; 2019-10-03)
PROC: 06LN0ZZ Occlusion of Left Femoral Vein, Open Approach (ICD-10-PCS; principal; 2019-10-03 10:00)
DX: T82.838A Hemorrhage due to vascular prosthetic devices, implants and grafts, initial encounter (principal); R57.8 Other shock; D68.9 Coagulation defect, unspecified; D64.9 Anemia, unspecified; E11.51 Type 2 diabetes mellitus with diabetic peripheral angiopathy without gangrene; I10 Essential (primary) hypertension; R32 Unspecified urinary incontinence; Z79.02 Long term (current) use of antithrombotics/antiplatelets; Z79.4 Long term (current) use of insulin; Z83.3 Family history of diabetes mellitus; Z90.710 Acquired absence of both cervix and uterus; Y83.2 Surgical operation with anastomosis, bypass or graft as the cause of abnormal reaction of the patient, or of later complication, without mention of misadventure at the time of the procedure; Y92.89 Other specified places as the place of occurrence of the external cause; Z79.899 Other long term (current) drug therapy
CPT/HCPCS: 36415; 36430; 75635; 75710; 76937; 80048; 80053; 82962; 85014; 85018; 85025; 85610; 85730; 86850; 86900; 86923; 87081; 90686; 93005; 96372; 96374; 96375; 96376; 99292; C1725; G0378; J0690; J0696; J1100; J1644; J2250; J2405; J2550; J2704; J2710; J2720; J3010; Q9966; Q9967; C1769; C1894; J0330; J0360; J1815; J2370; J7030; P9016; P9017; P9035

== ENCOUNTER 2019-10-12 17:13 | Emergency (ER) | payer MEDICARE, MEDICAID ==
[~2019-10-12] VITALS: Ht 157.5 cm; Wt 77.0 kg
--- NOTE | 2019-10-12 17:39 | NUR ---
PATIENT BROUGHT BACF FROM TRIAGE FOR FOLLOW UP AFTER FALING AT HOME TODAY. PER FAMILY THE PATIENT RECENTLY HAD TOE AMPUTATION ON LEFT TOE AND RIGHT LEG WOUND DEHISENCE. TOLD TO COME BY HOME HEALTH NURSE. PATIENT DENIES LOC. PT TAKES PLAVIX.
--- NOTE | 2019-10-12 17:46 | NUR ---
PATIENT DENIES PAIN BUT CONCERNED BECAUSE OF BLOOD THINNER, WOUND RN CHANGED SUGICAL BANDAGES THIS AFTERNOON.
--- NOTE | 2019-10-12 18:40 | NUR ---
ERMD GRAUSE AT BEDSIDE TO EVALUATE
[2019-10-12 18:42] VITALS: BP 158/59
--- NOTE | 2019-10-12 18:59 | NUR ---
REPORT RECEIVED FROM ROOPA OLSON. PT RESTING ON GURNEY WITH FAMILY AT . FAMILY'S QUESTIONS ANSWERED, DISCUSSED POC. ALL QUESTIONS ANSWERED. PT ON MONITORING, BED IN LOW POSITION, CALL LIGHT WITHIN REACH.
== END 2019-10-12 20:33 | disposition home or self-care (01) ==
LOC: ED 18:28
DX: T81.31XA Disruption of external operation (surgical) wound, not elsewhere classified, initial encounter (principal); I10 Essential (primary) hypertension; E11.65 Type 2 diabetes mellitus with hyperglycemia; Z90.710 Acquired absence of both cervix and uterus
CPT/HCPCS: 99283

== ENCOUNTER 2019-11-11 07:53 | Outpatient (CLI) | payer MEDICARE, MEDICAID ==
[~2019-11-11 07:53] MED LIST changes: +ACID1TAB7 PO; +CARV12.52 PO; +CEFD300C37 PO; +FERR-51 PO; +HYDR-3342 PO; +ISOS10TA2 PO; +VANC1VIA3 PO
== END 2019-11-11 23:59 | disposition home or self-care (01) ==
LOC: WOUND 07:53
PROVIDERS: ATTEND Internal Medicine Infectious Disease
DX: T87.89 Other complications of amputation stump (principal); E11.621 Type 2 diabetes mellitus with foot ulcer; L97.522 Non-pressure chronic ulcer of other part of left foot with fat layer exposed; E11.69 Type 2 diabetes mellitus with other specified complication; M86.172 Other acute osteomyelitis, left ankle and foot; E11.40 Type 2 diabetes mellitus with diabetic neuropathy, unspecified; E66.9 Obesity, unspecified; E11.21 Type 2 diabetes mellitus with diabetic nephropathy; E11.52 Type 2 diabetes mellitus with diabetic peripheral angiopathy with gangrene; I96 Gangrene, not elsewhere classified; E11.22 Type 2 diabetes mellitus with diabetic chronic kidney disease; I12.9 Hypertensive chronic kidney disease with stage 1 through stage 4 chronic kidney disease, or unspecified chronic kidney disease; N18.2 Chronic kidney disease, stage 2 (mild); I77.1 Stricture of artery; Z68.34 Body mass index [BMI] 34.0-34.9, adult; Z79.4 Long term (current) use of insulin; Y83.5 Amputation of limb(s) as the cause of abnormal reaction of the patient, or of later complication, without mention of misadventure at the time of the procedure
CPT/HCPCS: 11042; G0463

== ENCOUNTER 2019-11-20 13:44 | Outpatient (CLI) | payer MEDICARE, MEDICAID | END 2019-11-20 23:59 | disposition home or self-care (01) | LOC: WOUND 13:44 | PROVIDERS: ATTEND Internal Medicine Infectious Disease | DX: T87.89 Other complications of amputation stump (principal); E11.621 Type 2 diabetes mellitus with foot ulcer; L97.522 Non-pressure chronic ulcer of other part of left foot with fat layer exposed; E11.69 Type 2 diabetes mellitus with other specified complication; M86.172 Other acute osteomyelitis, left ankle and foot; E11.40 Type 2 diabetes mellitus with diabetic neuropathy, unspecified; E66.9 Obesity, unspecified; E11.21 Type 2 diabetes mellitus with diabetic nephropathy; E11.52 Type 2 diabetes mellitus with diabetic peripheral angiopathy with gangrene; I96 Gangrene, not elsewhere classified; E11.22 Type 2 diabetes mellitus with diabetic chronic kidney disease; I12.9 Hypertensive chronic kidney disease with stage 1 through stage 4 chronic kidney disease, or unspecified chronic kidney disease; N18.2 Chronic kidney disease, stage 2 (mild); I77.1 Stricture of artery; Z68.34 Body mass index [BMI] 34.0-34.9, adult; Z79.4 Long term (current) use of insulin; Y83.5 Amputation of limb(s) as the cause of abnormal reaction of the patient, or of later complication, without mention of misadventure at the time of the procedure | CPT/HCPCS: 11042 ==

== ENCOUNTER 2019-11-27 13:52 | Outpatient (CLI) | payer MEDICARE, MEDICAID | END 2019-11-27 23:59 | disposition home or self-care (01) | LOC: WOUND 13:52 | PROVIDERS: ATTEND Podiatrist Foot & Ankle Surgery | DX: T87.89 Other complications of amputation stump (principal); E11.621 Type 2 diabetes mellitus with foot ulcer; L97.522 Non-pressure chronic ulcer of other part of left foot with fat layer exposed; E11.69 Type 2 diabetes mellitus with other specified complication; M86.172 Other acute osteomyelitis, left ankle and foot; E11.40 Type 2 diabetes mellitus with diabetic neuropathy, unspecified; E66.9 Obesity, unspecified; E11.21 Type 2 diabetes mellitus with diabetic nephropathy; E11.52 Type 2 diabetes mellitus with diabetic peripheral angiopathy with gangrene; I96 Gangrene, not elsewhere classified; E11.22 Type 2 diabetes mellitus with diabetic chronic kidney disease; I12.9 Hypertensive chronic kidney disease with stage 1 through stage 4 chronic kidney disease, or unspecified chronic kidney disease; N18.2 Chronic kidney disease, stage 2 (mild); I77.1 Stricture of artery; Z68.34 Body mass index [BMI] 34.0-34.9, adult; Z79.4 Long term (current) use of insulin; Y83.5 Amputation of limb(s) as the cause of abnormal reaction of the patient, or of later complication, without mention of misadventure at the time of the procedure | CPT/HCPCS: 11042 ==

== ENCOUNTER 2019-12-04 13:51 | Outpatient (CLI) | payer MEDICARE, MEDICAID | END 2019-12-04 23:59 | disposition home or self-care (01) | LOC: WOUND 13:51 | PROVIDERS: ATTEND Podiatrist Foot & Ankle Surgery | DX: T87.89 Other complications of amputation stump (principal); E11.621 Type 2 diabetes mellitus with foot ulcer; L97.522 Non-pressure chronic ulcer of other part of left foot with fat layer exposed; E11.22 Type 2 diabetes mellitus with diabetic chronic kidney disease; I12.9 Hypertensive chronic kidney disease with stage 1 through stage 4 chronic kidney disease, or unspecified chronic kidney disease; N18.2 Chronic kidney disease, stage 2 (mild); E11.69 Type 2 diabetes mellitus with other specified complication; M86.172 Other acute osteomyelitis, left ankle and foot; E11.52 Type 2 diabetes mellitus with diabetic peripheral angiopathy with gangrene; I96 Gangrene, not elsewhere classified; E11.40 Type 2 diabetes mellitus with diabetic neuropathy, unspecified; E11.21 Type 2 diabetes mellitus with diabetic nephropathy; E66.9 Obesity, unspecified; M19.90 Unspecified osteoarthritis, unspecified site; M81.0 Age-related osteoporosis without current pathological fracture; I77.1 Stricture of artery; Z68.34 Body mass index [BMI] 34.0-34.9, adult; Z79.4 Long term (current) use of insulin; Z90.710 Acquired absence of both cervix and uterus; Z89.422 Acquired absence of other left toe(s); Z98.62 Peripheral vascular angioplasty status; Y83.5 Amputation of limb(s) as the cause of abnormal reaction of the patient, or of later complication, without mention of misadventure at the time of the procedure | CPT/HCPCS: 11042 ==

== ENCOUNTER 2019-12-11 13:55 | Outpatient (CLI) | payer MEDICARE, MEDICAID | END 2019-12-11 23:59 | disposition home or self-care (01) | LOC: WOUND 13:55 | PROVIDERS: ATTEND Podiatrist Foot & Ankle Surgery | DX: T87.89 Other complications of amputation stump (principal); E11.621 Type 2 diabetes mellitus with foot ulcer; L97.522 Non-pressure chronic ulcer of other part of left foot with fat layer exposed; E11.69 Type 2 diabetes mellitus with other specified complication; M86.172 Other acute osteomyelitis, left ankle and foot; E11.40 Type 2 diabetes mellitus with diabetic neuropathy, unspecified; E66.9 Obesity, unspecified; E11.21 Type 2 diabetes mellitus with diabetic nephropathy; E11.52 Type 2 diabetes mellitus with diabetic peripheral angiopathy with gangrene; I96 Gangrene, not elsewhere classified; E11.22 Type 2 diabetes mellitus with diabetic chronic kidney disease; I12.9 Hypertensive chronic kidney disease with stage 1 through stage 4 chronic kidney disease, or unspecified chronic kidney disease; N18.2 Chronic kidney disease, stage 2 (mild); I77.1 Stricture of artery; Z68.34 Body mass index [BMI] 34.0-34.9, adult; Z79.4 Long term (current) use of insulin; Y83.5 Amputation of limb(s) as the cause of abnormal reaction of the patient, or of later complication, without mention of misadventure at the time of the procedure | CPT/HCPCS: 97597 ==

== ENCOUNTER 2019-12-18 14:09 | Outpatient (CLI) | payer MEDICARE, MEDICAID | END 2019-12-18 23:59 | disposition home or self-care (01) | LOC: WOUND 14:09 | PROVIDERS: ATTEND Podiatrist Foot & Ankle Surgery | DX: T87.81 Dehiscence of amputation stump (principal); E11.621 Type 2 diabetes mellitus with foot ulcer; L97.523 Non-pressure chronic ulcer of other part of left foot with necrosis of muscle; E11.22 Type 2 diabetes mellitus with diabetic chronic kidney disease; I12.9 Hypertensive chronic kidney disease with stage 1 through stage 4 chronic kidney disease, or unspecified chronic kidney disease; N18.2 Chronic kidney disease, stage 2 (mild); E11.52 Type 2 diabetes mellitus with diabetic peripheral angiopathy with gangrene; I96 Gangrene, not elsewhere classified; E11.69 Type 2 diabetes mellitus with other specified complication; M86.172 Other acute osteomyelitis, left ankle and foot; E11.40 Type 2 diabetes mellitus with diabetic neuropathy, unspecified; E11.21 Type 2 diabetes mellitus with diabetic nephropathy; M81.0 Age-related osteoporosis without current pathological fracture; M19.90 Unspecified osteoarthritis, unspecified site; Z98.62 Peripheral vascular angioplasty status; E66.9 Obesity, unspecified; Z90.710 Acquired absence of both cervix and uterus; Z79.4 Long term (current) use of insulin; Z68.31 Body mass index [BMI] 31.0-31.9, adult; Y83.5 Amputation of limb(s) as the cause of abnormal reaction of the patient, or of later complication, without mention of misadventure at the time of the procedure | CPT/HCPCS: 11043; 87070; 87205 ==

== ENCOUNTER 2019-12-18 15:38 | Outpatient (CLI) | payer MEDICARE, MEDICAID | END 2019-12-18 23:59 | disposition home or self-care (01) | LOC: CFH 15:38 | PROVIDERS: ATTEND Podiatrist Foot & Ankle Surgery | DX: E11.628 Type 2 diabetes mellitus with other skin complications (principal); M81.0 Age-related osteoporosis without current pathological fracture; Z89.422 Acquired absence of other left toe(s) | CPT/HCPCS: 87077; 87186 ==

== ENCOUNTER 2019-12-25 14:01 | Outpatient (CLI) | payer MEDICARE, MEDICAID | END 2019-12-25 23:59 | disposition home or self-care (01) | LOC: WOUND 14:01 | PROVIDERS: ATTEND Podiatrist Foot & Ankle Surgery | DX: T87.89 Other complications of amputation stump (principal); E11.621 Type 2 diabetes mellitus with foot ulcer; L97.522 Non-pressure chronic ulcer of other part of left foot with fat layer exposed; E11.69 Type 2 diabetes mellitus with other specified complication; M86.172 Other acute osteomyelitis, left ankle and foot; E11.40 Type 2 diabetes mellitus with diabetic neuropathy, unspecified; E66.9 Obesity, unspecified; E11.21 Type 2 diabetes mellitus with diabetic nephropathy; E11.52 Type 2 diabetes mellitus with diabetic peripheral angiopathy with gangrene; I96 Gangrene, not elsewhere classified; E11.22 Type 2 diabetes mellitus with diabetic chronic kidney disease; I12.9 Hypertensive chronic kidney disease with stage 1 through stage 4 chronic kidney disease, or unspecified chronic kidney disease; N18.2 Chronic kidney disease, stage 2 (mild); I77.1 Stricture of artery; Z68.34 Body mass index [BMI] 34.0-34.9, adult; Z79.4 Long term (current) use of insulin; Y83.5 Amputation of limb(s) as the cause of abnormal reaction of the patient, or of later complication, without mention of misadventure at the time of the procedure | CPT/HCPCS: 11042; 87070; 87077; 87186; 87205 ==

== ENCOUNTER → 2020-01-01 | Outpatient (CLI) | payer MEDICARE, MEDICAID | END | disposition home or self-care (01) | LOC: WOUND 14:15 | PROVIDERS: ATTEND Podiatrist Foot & Ankle Surgery | DX: T87.89 Other complications of amputation stump (principal); E11.621 Type 2 diabetes mellitus with foot ulcer; L97.522 Non-pressure chronic ulcer of other part of left foot with fat layer exposed; E11.69 Type 2 diabetes mellitus with other specified complication; M86.172 Other acute osteomyelitis, left ankle and foot; E11.40 Type 2 diabetes mellitus with diabetic neuropathy, unspecified; E66.9 Obesity, unspecified; E11.21 Type 2 diabetes mellitus with diabetic nephropathy; E11.52 Type 2 diabetes mellitus with diabetic peripheral angiopathy with gangrene; I96 Gangrene, not elsewhere classified; E11.22 Type 2 diabetes mellitus with diabetic chronic kidney disease; I12.9 Hypertensive chronic kidney disease with stage 1 through stage 4 chronic kidney disease, or unspecified chronic kidney disease; N18.2 Chronic kidney disease, stage 2 (mild); I77.1 Stricture of artery; Z68.34 Body mass index [BMI] 34.0-34.9, adult; Z79.4 Long term (current) use of insulin; Y83.5 Amputation of limb(s) as the cause of abnormal reaction of the patient, or of later complication, without mention of misadventure at the time of the procedure | CPT/HCPCS: 97597 ==

== ENCOUNTER 2020-01-08 14:47 | Outpatient (CLI) | payer MEDICARE, MEDICAID | END 2020-01-08 23:59 | disposition home or self-care (01) | LOC: WOUND 14:47 | PROVIDERS: ATTEND Podiatrist Foot & Ankle Surgery | DX: T81.31XD Disruption of external operation (surgical) wound, not elsewhere classified, subsequent encounter (principal); E11.621 Type 2 diabetes mellitus with foot ulcer; L97.523 Non-pressure chronic ulcer of other part of left foot with necrosis of muscle; E11.69 Type 2 diabetes mellitus with other specified complication; M86.172 Other acute osteomyelitis, left ankle and foot; E11.40 Type 2 diabetes mellitus with diabetic neuropathy, unspecified; E66.9 Obesity, unspecified; E11.21 Type 2 diabetes mellitus with diabetic nephropathy; E11.52 Type 2 diabetes mellitus with diabetic peripheral angiopathy with gangrene; I96 Gangrene, not elsewhere classified; E11.22 Type 2 diabetes mellitus with diabetic chronic kidney disease; I12.9 Hypertensive chronic kidney disease with stage 1 through stage 4 chronic kidney disease, or unspecified chronic kidney disease; N18.2 Chronic kidney disease, stage 2 (mild); I77.1 Stricture of artery; M81.0 Age-related osteoporosis without current pathological fracture; M19.90 Unspecified osteoarthritis, unspecified site; Z68.34 Body mass index [BMI] 34.0-34.9, adult; Z79.4 Long term (current) use of insulin; Z90.710 Acquired absence of both cervix and uterus; Z89.422 Acquired absence of other left toe(s); Z98.62 Peripheral vascular angioplasty status; Y83.8 Other surgical procedures as the cause of abnormal reaction of the patient, or of later complication, without mention of misadventure at the time of the procedure | CPT/HCPCS: 97597 ==

== ENCOUNTER → 2020-01-15 | Outpatient (CLI) | payer MEDICARE, MEDICAID | END | disposition home or self-care (01) | LOC: WOUND 15:01 | PROVIDERS: ATTEND Podiatrist Foot & Ankle Surgery | DX: T81.31XD Disruption of external operation (surgical) wound, not elsewhere classified, subsequent encounter (principal); E11.621 Type 2 diabetes mellitus with foot ulcer; L97.523 Non-pressure chronic ulcer of other part of left foot with necrosis of muscle; E11.69 Type 2 diabetes mellitus with other specified complication; M86.172 Other acute osteomyelitis, left ankle and foot; E11.40 Type 2 diabetes mellitus with diabetic neuropathy, unspecified; E66.9 Obesity, unspecified; E11.21 Type 2 diabetes mellitus with diabetic nephropathy; E11.52 Type 2 diabetes mellitus with diabetic peripheral angiopathy with gangrene; I96 Gangrene, not elsewhere classified; E11.22 Type 2 diabetes mellitus with diabetic chronic kidney disease; I12.9 Hypertensive chronic kidney disease with stage 1 through stage 4 chronic kidney disease, or unspecified chronic kidney disease; N18.2 Chronic kidney disease, stage 2 (mild); I77.1 Stricture of artery; M81.0 Age-related osteoporosis without current pathological fracture; M19.90 Unspecified osteoarthritis, unspecified site; Z68.34 Body mass index [BMI] 34.0-34.9, adult; Z79.4 Long term (current) use of insulin; Z90.710 Acquired absence of both cervix and uterus; Z89.422 Acquired absence of other left toe(s); Z98.62 Peripheral vascular angioplasty status; Y83.8 Other surgical procedures as the cause of abnormal reaction of the patient, or of later complication, without mention of misadventure at the time of the procedure | CPT/HCPCS: 97597 ==

== ENCOUNTER → 2020-02-26 | Outpatient (CLI) | payer MEDICARE, MEDICAID | END | disposition home or self-care (01) | LOC: WOUND 15:02 | PROVIDERS: ATTEND Podiatrist Foot & Ankle Surgery | DX: T81.31XD Disruption of external operation (surgical) wound, not elsewhere classified, subsequent encounter (principal); E11.621 Type 2 diabetes mellitus with foot ulcer; L97.528 Non-pressure chronic ulcer of other part of left foot with other specified severity; E11.69 Type 2 diabetes mellitus with other specified complication; M86.172 Other acute osteomyelitis, left ankle and foot; E11.40 Type 2 diabetes mellitus with diabetic neuropathy, unspecified; E11.21 Type 2 diabetes mellitus with diabetic nephropathy; E11.52 Type 2 diabetes mellitus with diabetic peripheral angiopathy with gangrene; I96 Gangrene, not elsewhere classified; E11.22 Type 2 diabetes mellitus with diabetic chronic kidney disease; I12.9 Hypertensive chronic kidney disease with stage 1 through stage 4 chronic kidney disease, or unspecified chronic kidney disease; N18.2 Chronic kidney disease, stage 2 (mild); I77.1 Stricture of artery; M81.0 Age-related osteoporosis without current pathological fracture; M19.90 Unspecified osteoarthritis, unspecified site; E66.9 Obesity, unspecified; Z68.31 Body mass index [BMI] 31.0-31.9, adult; Z79.4 Long term (current) use of insulin; Z90.710 Acquired absence of both cervix and uterus; Z89.422 Acquired absence of other left toe(s); Z98.62 Peripheral vascular angioplasty status; Y83.8 Other surgical procedures as the cause of abnormal reaction of the patient, or of later complication, without mention of misadventure at the time of the procedure | CPT/HCPCS: G0463 ==

== ENCOUNTER 2021-07-29 09:56 | Emergency (ER) | payer MEDICARE, MEDICAID ==
[~2021-07-29] VITALS: Ht 152.4 cm; Wt 80.0 kg
[~2021-07-29 09:56] MED LIST changes: -ASCO500T6 PO; +ASCO500T9 PO; -CLIN300C8 PO; +CLIN300C9 PO; +MELA3TAB31 PO; -MELA3TAB56 PO; -SALM50DI INH; +SALM50DI2 INH; -VANC1VIA3 PO; +VANC1VIA36 PO
--- NOTE | 2021-07-29 10:19 | NUR ---
PT PRESENTS TO ED BY AMBULANCE W/ C/O GEN WEAKNESS AND DIZZINESS WITH STANDING BEGINNING THIS AM AT 0645. PER EMS FIRE ON SCENE PT HAD + ORTHOSTATIC BP WITH 90/60 SITTING AND 63/37 STANDING. PT'S FAMILY TOOK PT'S BG AND FOUND IT TO BE AT 180, FAMILY GAVE PT ORAL GLUCOSE AT THAT TIME. PER EMS, THEY FOUND PT'S BG TO BE 320.. PT TURKMEN SPEAKING PRIMARILY, DAUGHTER AT BEDSIDE TO TRANSLATE. PT A/O X 4, DROWSY. VSS. PT ON CONTINUOUS SPO2 AND CARDIAC MONITORING DENIES NEEDS. CALL LIGHT W/IN REACH. FALL PRECAUTIONS IN PLACE. DAUGHTER AT BEDSIDE.
[2021-07-29] MEDS ORDERED: SODIUM CHLORIDE 0.9% 1,000ML IVBOLUS ONE (10:30)
[2021-07-29] MEDS ORDERED: SODIUM CHLORIDE FLUSH 10ML SYR IVF ONE (10:30)
[2021-07-29 10:52] LABS: BASOPHILS % (AUTO) 1 % (0-1); EOSINOPHILS % (AUTO) 1 % (1-7); LYMPHOCYTES % (AUTO) 16 % (22-44); MEAN CORPUSCULAR HEMOGLOBIN 29.5 pg (27.0-34.8); MEAN CORPUSCULAR HGB CONC 33.9 g/dL (32.4-35.8); MONOCYTES % (AUTO) 6 % (2-9); NEUTROPHILS % (AUTO) 77 % (42-75); PLATELET COUNT 162 x10^3/uL (130-400); RED BLOOD COUNT 4.38 x10^6/uL (3.82-5.3); RED CELL DISTRIBUTION WIDTH 14.3 % (9.6-15.2)
[2021-07-29 10:59] LABS: ALANINE AMINOTRANSFERASE 22 U/L (12-78); ALBUMIN 3.7 g/dL (3.4-5.0); ANION GAP 13 mmol/L (5-15); CALCIUM 8.4 mg/dL (8.5-10.1); CHLORIDE 102 mmol/L (98-107); CREATININE 1.45 mg/dL (0.55-1.02)
[2021-07-29 11:04] LABS: ALKALINE PHOSPHATASE 102 U/L (45-117); BILIRUBIN,TOTAL 0.4 mg/dL (0.2-1.0); TOTAL PROTEIN 7.5 g/dL (6.4-8.2); TROPONIN I 0.023 ng/mL (0.000-0.045)
--- NOTE | 2021-07-29 11:17 | NUR ---
PT'S CHART UP FOR RECHECK
[2021-07-29 12:07] VITALS: BP 163/61
== END 2021-07-29 12:12 | disposition home or self-care (01) ==
LOC: ED 12:00
DX: R55 Syncope and collapse (principal); N28.9 Disorder of kidney and ureter, unspecified; E11.65 Type 2 diabetes mellitus with hyperglycemia; R42 Dizziness and giddiness; R94.31 Abnormal electrocardiogram [ECG] [EKG]; I10 Essential (primary) hypertension
CPT/HCPCS: 36415; 71045; 80053; 84484; 85025; 93005; 99285; J7030; 96360